=== PATIENT | male | born 1960 | race Hispanic/Latino ===

== ENCOUNTER 2022-11-28 09:08 | Inpatient (IN) | payer OTHER ==
[2022-11-28 09:46] LABS: #Eosinphils 0.3 thou/uL (0.0-0.7); #Monocytes 0.3 thou/uL (0.11-0.59); #Neutrophils 2.3 thou/uL (1.40-6.50); %Basophils 1.1 % (0.0-1.0); %Eosinophils 8.6 % (0.0-10.0); %Lymphocytes 17.7 % (21.0-51.0); %Monocytes 7.5 % (0.0-10.0); %Neutrophils 64.8 % (42.0-75.0); Hematocrit 18.3 % (42.0-52.0); Hemoglobin 6.5 g/dL (14.0-18.0); Mean Corpuscular HGB CONC 35.5 g/dL (32.0-36.0); Mean Corpuscular Hemoglobin 30.1 pg (27.0-31.0); Mean Corpuscular Volume 84.7 fl (78.0-98.0); Mean Platelet Volume 10.8 fL (7.4-10.4); Platelet Count 136 10x3/uL (130-400); RBC Distribution Width 13.1 % (11.5-14.5); Red Blood Cell (RBC) Count 2.16 mill/uL (4.70-6.10); White Blood Cell (WBC) Count 3.6 10x3/uL (4.8-10.8)
[2022-11-28 10:09] LABS: ALT (SGPT) 29 U/L (8-55); AST (SGOT) 30 U/L (5-34); Albumin 2.4 g/dL (3.5-5.0); Alkaline Phosphatase 200 U/L (40-110); Anion Gap 15 mmol/L (10-20); BUN (Urea Nitrogen) 51 mg/dL (8.4-25.7); Bilirubin, Total 0.3 mg/dL (0.2-1.2); Calc. Creatinine Clearance 0 mL/min (70-130); Calcium 7.4 mg/dL (7.8-10.44); Carbon Dioxide 14 mmol/L (22-29); Chloride 99 mmol/L (98-107); Estimated GFR 15; Globulin 3.2 g/dL (2.4-3.5); Potassium 4.3 mmol/L (3.5-5.1); Protein, Total 5.6 g/dL (6.0-8.3); Sodium 124 mmol/L (136-145)
[2022-11-28 10:15] LABS: Glucose 609 mg/dL (70-105)
[2022-11-28 11:34] LABS: Iron 93 ug/dL (65-175); Iron Binding Capacity, Total 179 mcg/dL (261-462)
[2022-11-28 11:36] LABS: INR-International Normal Ratio 0.9; PTT 26.2 sec (22.9-36.1); Prothrombin Time 12.9 sec (12.0-14.7)
[2022-11-28] MEDS ORDERED: Insulin Regular 300 UNITS/3 ML VIAL ONE (11:37)
[2022-11-28 11:52] LABS: Troponin I 0.066 ng/mL (< 0.028)
[2022-11-28] MEDS ORDERED: Dextrose 50% Abboject 50 ML SYRINGE SLOW IVP PRN (12:00)
[2022-11-28] MEDS ORDERED: Glucagon 1 MG/ML KIT IM PRN (12:00)
[2022-11-28] MEDS ORDERED: Dextrose 5% in Water 1,000 ML IV PRN (12:00)
[2022-11-28] MEDS ORDERED: Ondansetron PF 4 MG/2 ML Vial IVP PRN (12:02)
[2022-11-28 12:15] LABS: Actual Bicarbonate (HCO3v) 15.7 mEq/L (22-28); Base Excess -9.9 mEq/L (-2.0 to +3.0); Calcium, Ionized (venous) 0.99 mmol/L (1.16-1.32); Chloride (VBG) 103 mmol/L (98-106); Hematocrit-VBG 18 % (42.0-52.0); Hemoglobin (Hb) 6.1 g/dL (13.1-17.2); Potassium (VBG) 3.72 mmol/L (3.70-5.30); Sodium 124.7 mmol/L (133-146); pH (venous) 7.291 (7.32-7.43)
[2022-11-28] MEDS ORDERED: Sodium Bicarbonate 150 MEQ in Dextrose 5% in Water 1,000 ML IV SCH (12:30)
[2022-11-28 12:34] LABS: Magnesium 1.3 mg/dL (1.6-2.6); Phosphorus 3.9 mg/dL (2.3-4.7)
[2022-11-28] MEDS ORDERED: CALCIUM GLUC 1 GM/NS 50 ML 1 GM in Premix Bag 1 BAG IVPB SCH (12:45)
[2022-11-28 12:59] LABS: Troponin I 0.047 ng/mL (< 0.028)
[2022-11-28 13:20] LABS: Troponin I 0.056 ng/mL (< 0.028)
[2022-11-28] MEDS ORDERED: Magnesium Sulfate In Water 4 GM in Premix Bag 1 BAG IVPB SCH (14:15)
[2022-11-28 15:00] VITALS: BMI 28.8
[2022-11-28 15:37] LABS: Hemoglobin A1c Greater than 14.0 % (4.0-6.0)
[2022-11-28 15:44] LABS: Cardiac Risk 5.5 (Less than 4.5)
[2022-11-28 16:03] LABS: Troponin I 0.073 ng/mL (< 0.028)
[2022-11-28 18:34] LABS: Anion Gap 12 mmol/L (10-20); BUN (Urea Nitrogen) 49 mg/dL (8.4-25.7); Calc. Creatinine Clearance 22 mL/min (70-130); Calcium 7.5 mg/dL (7.8-10.44); Carbon Dioxide 17 mmol/L (22-29); Chloride 103 mmol/L (98-107); Estimated GFR 17; Glucose 296 mg/dL (70-105); Potassium 3.8 mmol/L (3.5-5.1); Sodium 128 mmol/L (136-145)
[2022-11-28] MEDS: Carvedilol 6.25 MG TAB PO SCH (20:30)
[2022-11-28] MEDS: HumaLOG 300 UNITS/3 ML VIAL SC PRN ×2 (20:30→22:17)
[2022-11-28] MEDS: Atorvastatin Calcium 20 MG TAB PO SCH (20:30)
[2022-11-28] MEDS ORDERED: Morphine 2 MG/ML VIAL SLOW IVP SCH (20:45)
[2022-11-28] MEDS ORDERED: Insulin NPH Human Isophane 100 UNITS/ML (10 ML VIAL) SC SCH (21:00)
[2022-11-28] MEDS ORDERED: Sodium Bicarbonate 75 MEQ in Sodium Chloride 0.45% 1,000 ML IV SCH (23:00)
[2022-11-29] MEDS: HumaLOG 300 UNITS/3 ML VIAL SC PRN (00:18)
[2022-11-29 02:52] LABS: #Eosinphils 0.3 thou/uL (0.0-0.7); #Monocytes 0.2 thou/uL (0.11-0.59); #Neutrophils 2.4 thou/uL (1.40-6.50); %Basophils 1.1 % (0.0-1.0); %Eosinophils 8.9 % (0.0-10.0); %Lymphocytes 19.1 % (21.0-51.0); %Monocytes 5.1 % (0.0-10.0); %Neutrophils 65.8 % (42.0-75.0); Hematocrit 22.2 % (42.0-52.0); Hemoglobin 7.6 g/dL (14.0-18.0); Mean Corpuscular HGB CONC 34.2 g/dL (32.0-36.0); Mean Corpuscular Hemoglobin 29.2 pg (27.0-31.0); Mean Corpuscular Volume 85.4 fl (78.0-98.0); Mean Platelet Volume 10.5 fL (7.4-10.4); Platelet Count 129 10x3/uL (130-400); RBC Distribution Width 13.5 % (11.5-14.5); White Blood Cell (WBC) Count 3.7 10x3/uL (4.8-10.8)
[2022-11-29 03:05] LABS: Bacteria/HPF None Seen HPF (None Seen); Bilirubin Negative (Negative); Blood, Urine 2+ (Negative); CAUTI Indications for Culture Alt mental st,lethar; Clarity Clear (Clear); Glucose, Urine (Dipstick) Greater than 1000 mg/dL (Negative); Ketone, Urine Negative (Negative); Leukocyte Negative Leu/uL (Negative); Nitrite Negative (Negative); Protein, Urine (Dipstick) 300 mg/dL (Neg-Trace); Specific Gravity, Urine 1.014 (1.002-1.036); Squamous Epithelial None Seen HPF (0-3); Urobilinogen Normal mg/dL (Less than 2); WBC/HPF 0-3 HPF (0-3)
[2022-11-29 03:07] LABS: Urine Culture Reflex No No
[2022-11-29 03:14] LABS: Creatinine, Urine 38.57 mg/dL (63-166)
[2022-11-29 04:40] LABS: ALT (SGPT) 22 U/L (8-55); AST (SGOT) 25 U/L (5-34); Albumin 1.9 g/dL (3.5-5.0); Alkaline Phosphatase 139 U/L (40-110); Anion Gap 16 mmol/L (10-20); BUN (Urea Nitrogen) 48 mg/dL (8.4-25.7); Bilirubin, Total 0.5 mg/dL (0.2-1.2); CK (CPK) 345 U/L (30-200); Calc. Creatinine Clearance 21 mL/min (70-130); Calcium 7.5 mg/dL (7.8-10.44); Carbon Dioxide 14 mmol/L (22-29); Chloride 105 mmol/L (98-107); Estimated GFR 17; Globulin 2.5 g/dL (2.4-3.5); Glucose 133 mg/dL (70-105); Potassium 3.7 mmol/L (3.5-5.1); Protein, Total 4.4 g/dL (6.0-8.3); Sodium 131 mmol/L (136-145)
[2022-11-29] MEDS: Carvedilol 6.25 MG TAB PO SCH ×2 (08:41→20:42)
[2022-11-29] MEDS ORDERED: Pantoprazole 40 MG VIAL IVP SCH (09:00)
[2022-11-29] MEDS ORDERED: Epoetin (ESRD) 10,000 UNITS/ML VIAL SC SCH (12:00)
[2022-11-29] MEDS: Albumin 25% 25 GM/100 ML BOT IVPB SCH ×3 (13:04→23:20)
[2022-11-29] MEDS: Sodium Bicarbonate Tab 325 MG TAB PO SCH ×3 (13:04→20:52)
[2022-11-29] MEDS: Atorvastatin Calcium 20 MG TAB PO SCH (20:52)
[2022-11-30] MEDS: Levothyroxine Sodium 100 MCG TAB PO SCH (05:50)
[2022-11-30] MEDS: Albumin 25% 25 GM/100 ML BOT IVPB SCH (05:50)
[2022-11-30 05:52] LABS: #Eosinphils 0.2 thou/uL (0.0-0.7); #Monocytes 0.2 thou/uL (0.11-0.59); %Basophils 0.7 % (0.0-1.0); %Eosinophils 7.3 % (0.0-10.0); %Lymphocytes 16.6 % (21.0-51.0); %Monocytes 7.6 % (0.0-10.0); %Neutrophils 67.5 % (42.0-75.0); Hemoglobin 7.3 g/dL (14.0-18.0); Mean Corpuscular HGB CONC 34.8 g/dL (32.0-36.0); Mean Corpuscular Hemoglobin 28.9 pg (27.0-31.0); Mean Platelet Volume 10.7 fL (7.4-10.4); Platelet Count 124 10x3/uL (130-400); RBC Distribution Width 13.8 % (11.5-14.5); Red Blood Cell (RBC) Count 2.53 mill/uL (4.70-6.10)
[2022-11-30 06:10] LABS: Anion Gap 13 mmol/L (10-20); BUN (Urea Nitrogen) 44 mg/dL (8.4-25.7); Calc. Creatinine Clearance 22 mL/min (70-130); Calcium 7.6 mg/dL (7.8-10.44); Carbon Dioxide 17 mmol/L (22-29); Chloride 105 mmol/L (98-107); Estimated GFR 18; Glucose 157 mg/dL (70-105); Sodium 131 mmol/L (136-145)
[2022-11-30] MEDS: Carvedilol 6.25 MG TAB PO SCH ×2 (08:19→20:24)
[2022-11-30] MEDS: Sodium Bicarbonate Tab 325 MG TAB PO SCH ×3 (08:19→20:25)
[2022-11-30] MEDS: HumaLOG 300 UNITS/3 ML VIAL SC PRN ×2 (18:50→20:25)
[2022-11-30] MEDS: Atorvastatin Calcium 20 MG TAB PO SCH (20:24)
[2022-11-30] MEDS: hydrALAZINE 10 MG TAB PO SCH (20:25)
[2022-12-01] MEDS: Levothyroxine Sodium 100 MCG TAB PO SCH (05:57)
[2022-12-01] MEDS: Insulin Glargine 30 UNITS/0.3 ML VIAL SC SCH (09:02)
[2022-12-01] MEDS: Carvedilol 6.25 MG TAB PO SCH ×2 (09:03→21:08)
[2022-12-01] MEDS: Sodium Bicarbonate Tab 325 MG TAB PO SCH ×3 (09:03→21:08)
[2022-12-01] MEDS: hydrALAZINE 10 MG TAB PO SCH ×3 (09:04→21:08)
[2022-12-01] MEDS ORDERED: DOBUTamine 500 mg/250 ml 250 ML IVPB SCH (10:15)
[2022-12-01 10:39] LABS: #Eosinphils 0.2 thou/uL (0.0-0.7); #Monocytes 0.3 thou/uL (0.11-0.59); #Neutrophils 2.5 thou/uL (1.40-6.50); %Basophils 0.9 % (0.0-1.0); %Eosinophils 6.9 % (0.0-10.0); %Lymphocytes 12.4 % (21.0-51.0); %Monocytes 8.3 % (0.0-10.0); %Neutrophils 71.2 % (42.0-75.0); Hematocrit 20.7 % (42.0-52.0); Hemoglobin 6.9 g/dL (14.0-18.0); Mean Corpuscular HGB CONC 33.3 g/dL (32.0-36.0); Mean Platelet Volume 10.5 fL (7.4-10.4); Platelet Count 124 10x3/uL (130-400); RBC Distribution Width 14.1 % (11.5-14.5); Red Blood Cell (RBC) Count 2.38 mill/uL (4.70-6.10); White Blood Cell (WBC) Count 3.5 10x3/uL (4.8-10.8)
[2022-12-01] MEDS: Acetaminophen 325 MG TAB PO PRN ×2 (10:53→18:06)
[2022-12-01] MEDS ORDERED: CALCIUM GLUC 1 GM/NS 50 ML 1 GM in Premix Bag 1 BAG IVPB SCH (11:00)
[2022-12-01 11:06] LABS: Anion Gap 12 mmol/L (10-20); BUN (Urea Nitrogen) 44 mg/dL (8.4-25.7); Calc. Creatinine Clearance 20 mL/min (70-130); Calcium 7.8 mg/dL (7.8-10.44); Carbon Dioxide 19 mmol/L (22-29); Chloride 105 mmol/L (98-107); Estimated GFR 16; Glucose 159 mg/dL (70-105); Magnesium 1.7 mg/dL (1.6-2.6); Potassium 4.4 mmol/L (3.5-5.1); Sodium 132 mmol/L (136-145)
[2022-12-01] MEDS: HumaLOG 300 UNITS/3 ML VIAL SC PRN ×2 (12:18→18:05)
[2022-12-01] MEDS ORDERED: Isosorbide Dinitrate 5 MG TAB PO SCH (14:00)
[2022-12-01] MEDS: traMADol HCl 50 MG TAB PO PRN (21:07)
[2022-12-01] MEDS: Isosorbide Dinitrate 5 MG TAB PO SCH (21:07)
[2022-12-01] MEDS: Atorvastatin Calcium 20 MG TAB PO SCH (21:08)
[2022-12-01] MEDS: Magnesium Oxide 400 MG TAB PO SCH (21:08)
[2022-12-02 05:36] LABS: #Eosinphils 0.2 thou/uL (0.0-0.7); #Monocytes 0.2 thou/uL (0.11-0.59); #Neutrophils 2.2 thou/uL (1.40-6.50); %Basophils 0.7 % (0.0-1.0); %Eosinophils 5.6 % (0.0-10.0); %Lymphocytes 14.2 % (21.0-51.0); %Neutrophils 71.8 % (42.0-75.0); Hematocrit 21.1 % (42.0-52.0); Hemoglobin 7.1 g/dL (14.0-18.0); Mean Corpuscular HGB CONC 33.6 g/dL (32.0-36.0); Mean Corpuscular Hemoglobin 29.6 pg (27.0-31.0); Mean Corpuscular Volume 87.9 fl (78.0-98.0); Mean Platelet Volume 10.2 fL (7.4-10.4); Platelet Count 110 10x3/uL (130-400); RBC Distribution Width 14.4 % (11.5-14.5)
[2022-12-02] MEDS: Isosorbide Dinitrate 5 MG TAB PO SCH (05:36)
[2022-12-02] MEDS: hydrALAZINE 10 MG TAB PO SCH (05:36)
[2022-12-02] MEDS: Levothyroxine Sodium 100 MCG TAB PO SCH (05:37)
[2022-12-02 06:03] LABS: Anion Gap 11 mmol/L (10-20); BUN (Urea Nitrogen) 43 mg/dL (8.4-25.7); Calc. Creatinine Clearance 21 mL/min (70-130); Calcium 7.6 mg/dL (7.8-10.44); Carbon Dioxide 17 mmol/L (22-29); Chloride 109 mmol/L (98-107); Estimated GFR 16; Glucose 56 mg/dL (70-105); Potassium 4.3 mmol/L (3.5-5.1); Sodium 133 mmol/L (136-145)
[2022-12-02 06:59] LABS: Magnesium 1.7 mg/dL (1.6-2.6)
[2022-12-02] MEDS: Insulin Glargine 30 UNITS/0.3 ML VIAL SC SCH (09:51)
[2022-12-02] MEDS: Sodium Bicarbonate Tab 325 MG TAB PO SCH ×3 (09:51→20:38)
[2022-12-02] MEDS: Magnesium Oxide 400 MG TAB PO SCH ×2 (09:52→20:39)
[2022-12-02] MEDS: traMADol HCl 50 MG TAB PO PRN ×2 (09:52→20:38)
[2022-12-02] MEDS: Carvedilol 6.25 MG TAB PO SCH ×2 (09:53→20:38)
[2022-12-02] MEDS: hydrALAZINE 25 MG TAB PO SCH ×2 (14:00→20:37)
[2022-12-02] MEDS: Isosorbide Dinitrate 20 MG TAB PO SCH ×2 (14:00→20:37)
[2022-12-02] MEDS: Acetaminophen 325 MG TAB PO PRN (15:50)
[2022-12-02] MEDS: DOBUTamine 500 mg/250 ml 250 ML IVPB SCH (15:50)
[2022-12-02] MEDS: Atorvastatin Calcium 20 MG TAB PO SCH (20:39)
[2022-12-03 04:22] LABS: #Eosinphils 0.2 thou/uL (0.0-0.7); #Monocytes 0.5 thou/uL (0.11-0.59); #Neutrophils 4.8 thou/uL (1.40-6.50); %Basophils 0.5 % (0.0-1.0); %Eosinophils 3.1 % (0.0-10.0); %Lymphocytes 9.8 % (21.0-51.0); %Neutrophils 78.1 % (42.0-75.0); Hematocrit 21.5 % (42.0-52.0); Hemoglobin 7.1 g/dL (14.0-18.0); Mean Corpuscular Hemoglobin 28.6 pg (27.0-31.0); Mean Corpuscular Volume 86.7 fl (78.0-98.0); Mean Platelet Volume 10.6 fL (7.4-10.4); Platelet Count 101 10x3/uL (130-400); RBC Distribution Width 14.6 % (11.5-14.5); Red Blood Cell (RBC) Count 2.48 mill/uL (4.70-6.10); White Blood Cell (WBC) Count 6.1 10x3/uL (4.8-10.8)
[2022-12-03 04:49] LABS: Anion Gap 11 mmol/L (10-20); BUN (Urea Nitrogen) 41 mg/dL (8.4-25.7); Calc. Creatinine Clearance 20 mL/min (70-130); Calcium 7.3 mg/dL (7.8-10.44); Carbon Dioxide 18 mmol/L (22-29); Chloride 106 mmol/L (98-107); Estimated GFR 15; Magnesium 1.7 mg/dL (1.6-2.6); Sodium 131 mmol/L (136-145)
[2022-12-03 04:55] LABS: Glucose 54 mg/dL (70-105)
[2022-12-03] MEDS: hydrALAZINE 25 MG TAB PO SCH ×3 (05:28→20:53)
[2022-12-03] MEDS: Levothyroxine Sodium 100 MCG TAB PO SCH (05:28)
[2022-12-03] MEDS: Isosorbide Dinitrate 20 MG TAB PO SCH ×3 (05:28→20:54)
[2022-12-03] MEDS ORDERED: hydrALAZINE 25 MG TAB PO SCH (08:45)
[2022-12-03] MEDS: Magnesium Oxide 400 MG TAB PO SCH ×2 (08:57→20:55)
[2022-12-03] MEDS: Carvedilol 6.25 MG TAB PO SCH ×2 (08:58→20:55)
[2022-12-03] MEDS: Sodium Bicarbonate Tab 325 MG TAB PO SCH (08:59)
[2022-12-03] MEDS: traMADol HCl 50 MG TAB PO PRN ×2 (10:14→20:54)
[2022-12-03] MEDS ORDERED: Tuberculin PPD 0.1 ML VIAL I-DERMAL SCH (13:15)
[2022-12-03] MEDS: Atorvastatin Calcium 20 MG TAB PO SCH (20:55)
[2022-12-04 04:21] LABS: #Eosinphils 0.2 thou/uL (0.0-0.7); #Monocytes 0.3 thou/uL (0.11-0.59); #Neutrophils 3.5 thou/uL (1.40-6.50); %Basophils 0.5 % (0.0-1.0); %Eosinophils 5.2 % (0.0-10.0); %Lymphocytes 6.6 % (21.0-51.0); %Monocytes 7.7 % (0.0-10.0); %Neutrophils 79.8 % (42.0-75.0); Hematocrit 22.1 % (42.0-52.0); Hemoglobin 7.2 g/dL (14.0-18.0); Mean Corpuscular HGB CONC 32.6 g/dL (32.0-36.0); Mean Corpuscular Hemoglobin 29.1 pg (27.0-31.0); Mean Platelet Volume 10.7 fL (7.4-10.4); Platelet Count 102 10x3/uL (130-400); RBC Distribution Width 14.6 % (11.5-14.5); Red Blood Cell (RBC) Count 2.47 mill/uL (4.70-6.10); White Blood Cell (WBC) Count 4.4 10x3/uL (4.8-10.8)
[2022-12-04 04:24] LABS: Mean Corpuscular Volume 89.5 fl (78.0-98.0)
[2022-12-04 04:45] LABS: Anion Gap 13 mmol/L (10-20); BUN (Urea Nitrogen) 41 mg/dL (8.4-25.7); Calc. Creatinine Clearance 19 mL/min (70-130); Calcium 7.2 mg/dL (7.8-10.44); Carbon Dioxide 18 mmol/L (22-29); Chloride 107 mmol/L (98-107); Estimated GFR 14; Glucose 144 mg/dL (70-105); Magnesium 1.8 mg/dL (1.6-2.6); Potassium 4.5 mmol/L (3.5-5.1); Sodium 133 mmol/L (136-145)
[2022-12-04 05:05] LABS: HBSAB Concentration Less than 8.00 mIU/mL; HBSAg Index 0.27 S/CO (0-0.99); Hep B Core Total Ab Non-Reactive (NonReactive); Hep B Core Total Index 0.06 S/CO (0-0.79); Hep B Surf AB Non-Reactive (NonReactive); Hep B Surf Ag Non-Reactive S/CO (NonReactive); Hep C IgG Ab Non-Reactive S/CO (NonReactive)
[2022-12-04] MEDS: Isosorbide Dinitrate 20 MG TAB PO SCH ×3 (05:37→22:05)
[2022-12-04] MEDS: Levothyroxine Sodium 100 MCG TAB PO SCH (05:37)
[2022-12-04] MEDS: hydrALAZINE 25 MG TAB PO SCH ×3 (05:37→22:04)
[2022-12-04] MEDS ORDERED: fentaNYL PF 100 MCG/2 ML SYRINGE ONE (06:18)
[2022-12-04] MEDS ORDERED: Bupivacaine PF 0.5% 30 ML VIAL ONE (06:49)
[2022-12-04] MEDS ORDERED: Lidocaine 2% PF 5 ML VIAL ONE (06:49)
[2022-12-04] MEDS ORDERED: EPINEPHrine 1 MG/ML AMP ONE (06:49)
[2022-12-04] MEDS ORDERED: Midazolam HCl 2 mg/2 ml Vial ONE (06:58)
[2022-12-04] MEDS ORDERED: Lidocaine 1% PF 5 ML VIAL ONE (08:32)
[2022-12-04] MEDS ORDERED: PROPOFOL 200 MG/20 ML VIAL ONE (08:32)
[2022-12-04] MEDS: Carvedilol 6.25 MG TAB PO SCH ×2 (10:19→22:05)
[2022-12-04] MEDS: Magnesium Oxide 400 MG TAB PO SCH ×2 (10:19→22:04)
[2022-12-04] MEDS: traMADol HCl 50 MG TAB PO PRN (13:58)
[2022-12-04] MEDS ORDERED: Tuberculin PPD 0.1 ML VIAL I-DERMAL SCH (15:15)
[2022-12-04] MEDS ORDERED: CEFAZOLIN 2 GM in Sodium Chloride 0.9% 100 ML IVPB SCH (15:45)
[2022-12-04] MEDS: EPOETIN ALFA-EPBX (ESRD) 10,000 UNITS/ML VIAL IVP SCH (16:30)
[2022-12-04] MEDS: DOBUTamine 500 mg/250 ml 250 ML IVPB SCH (18:17)
[2022-12-04] MEDS: Atorvastatin Calcium 20 MG TAB PO SCH (22:04)
[2022-12-04] MEDS: HumaLOG 300 UNITS/3 ML VIAL SC PRN (22:06)
[2022-12-04] MEDS: Acetaminophen 325 MG TAB PO PRN (22:11)
[2022-12-05] MEDS ORDERED: Morphine 2 MG/ML VIAL SLOW IVP SCH (00:15)
[2022-12-05 04:09] LABS: #Eosinphils 0.3 thou/uL (0.0-0.7); #Monocytes 0.4 thou/uL (0.11-0.59); #Neutrophils 2.1 thou/uL (1.40-6.50); %Basophils 0.9 % (0.0-1.0); %Eosinophils 9.6 % (0.0-10.0); %Monocytes 11.7 % (0.0-10.0); %Neutrophils 64.8 % (42.0-75.0); Hematocrit 22.1 % (42.0-52.0); Hemoglobin 7.3 g/dL (14.0-18.0); Mean Corpuscular Hemoglobin 29.2 pg (27.0-31.0); Mean Corpuscular Volume 88.4 fl (78.0-98.0); Mean Platelet Volume 10.2 fL (7.4-10.4); Platelet Count 116 10x3/uL (130-400); RBC Distribution Width 14.8 % (11.5-14.5); White Blood Cell (WBC) Count 3.2 10x3/uL (4.8-10.8)
[2022-12-05] MEDS: hydrALAZINE 25 MG TAB PO SCH ×3 (05:11→21:05)
[2022-12-05] MEDS: Isosorbide Dinitrate 20 MG TAB PO SCH ×3 (05:11→21:04)
[2022-12-05] MEDS: Levothyroxine Sodium 100 MCG TAB PO SCH (05:11)
[2022-12-05] MEDS: HumaLOG 300 UNITS/3 ML VIAL SC PRN ×2 (06:26→18:16)
[2022-12-05 07:02] LABS: Anion Gap 12 mmol/L (10-20); BUN (Urea Nitrogen) 31 mg/dL (8.4-25.7); Calc. Creatinine Clearance 22 mL/min (70-130); Calcium 7.2 mg/dL (7.6-10.4); Carbon Dioxide 19 mmol/L (22-29); Chloride 107 mmol/L (98-107); Estimated GFR 16; Glucose 243 mg/dL (70-105); Magnesium 1.8 mg/dL (1.6-2.6); Potassium 4.3 mmol/L (3.5-5.1); Sodium 134 mmol/L (136-145)
[2022-12-05] MEDS ORDERED: DOBUTamine 500 mg/250 ml 250 ML IVPB SCH (08:00)
[2022-12-05] MEDS: Carvedilol 6.25 MG TAB PO SCH ×2 (09:57→21:04)
[2022-12-05] MEDS: Magnesium Oxide 400 MG TAB PO SCH ×2 (09:57→21:04)
[2022-12-05] MEDS ORDERED: Heparin 10,000 UNITS/ 10 ML VIAL ONE (10:47)
[2022-12-05] MEDS: traMADol HCl 50 MG TAB PO PRN (14:06)
[2022-12-05] MEDS: Atorvastatin Calcium 20 MG TAB PO SCH (21:12)
[2022-12-06] MEDS: traMADol HCl 50 MG TAB PO PRN ×2 (02:31→14:13)
[2022-12-06 04:55] LABS: #Eosinphils 0.3 thou/uL (0.0-0.7); #Monocytes 0.4 thou/uL (0.11-0.59); #Neutrophils 2.4 thou/uL (1.40-6.50); %Basophils 0.8 % (0.0-1.0); %Eosinophils 9.2 % (0.0-10.0); %Lymphocytes 14.2 % (21.0-51.0); %Monocytes 9.7 % (0.0-10.0); %Neutrophils 65.8 % (42.0-75.0); Hematocrit 25.1 % (42.0-52.0); Hemoglobin 8.3 g/dL (14.0-18.0); Mean Corpuscular HGB CONC 33.1 g/dL (32.0-36.0); Mean Corpuscular Volume 87.8 fl (78.0-98.0); Mean Platelet Volume 10.2 fL (7.4-10.4); Platelet Count 131 10x3/uL (130-400); RBC Distribution Width 14.8 % (11.5-14.5); Red Blood Cell (RBC) Count 2.86 mill/uL (4.70-6.10); White Blood Cell (WBC) Count 3.6 10x3/uL (4.8-10.8)
[2022-12-06 05:26] LABS: Anion Gap 11 mmol/L (10-20); BUN (Urea Nitrogen) 25 mg/dL (8.4-25.7); Calc. Creatinine Clearance 25 mL/min (70-130); Calcium 7.1 mg/dL (7.8-10.44); Carbon Dioxide 23 mmol/L (22-29); Chloride 103 mmol/L (98-107); Estimated GFR 19; Glucose 164 mg/dL (70-105); Magnesium 1.8 mg/dL (1.6-2.6); Potassium 4.2 mmol/L (3.5-5.1); Sodium 133 mmol/L (136-145)
[2022-12-06] MEDS: hydrALAZINE 25 MG TAB PO SCH ×3 (05:41→20:57)
[2022-12-06] MEDS: Isosorbide Dinitrate 20 MG TAB PO SCH ×3 (05:42→20:58)
[2022-12-06] MEDS: Levothyroxine Sodium 100 MCG TAB PO SCH (05:43)
[2022-12-06] MEDS: HumaLOG 300 UNITS/3 ML VIAL SC PRN ×2 (06:52→20:58)
[2022-12-06] MEDS: Magnesium Oxide 400 MG TAB PO SCH ×2 (08:42→20:57)
[2022-12-06] MEDS: Carvedilol 6.25 MG TAB PO SCH ×2 (08:42→20:57)
[2022-12-06] MEDS: EPOETIN ALFA-EPBX (ESRD) 10,000 UNITS/ML VIAL IVP SCH (08:42)
[2022-12-06] MEDS: Atorvastatin Calcium 20 MG TAB PO SCH (20:57)
[2022-12-07] MEDS: traMADol HCl 50 MG TAB PO PRN ×2 (02:16→15:23)
[2022-12-07 05:29] LABS: #Eosinphils 0.4 thou/uL (0.0-0.7); #Monocytes 0.4 thou/uL (0.11-0.59); %Basophils 1.1 % (0.0-1.0); %Eosinophils 11.3 % (0.0-10.0); %Lymphocytes 19.7 % (21.0-51.0); %Monocytes 11.3 % (0.0-10.0); Hematocrit 24.5 % (42.0-52.0); Hemoglobin 7.9 g/dL (14.0-18.0); Mean Corpuscular HGB CONC 32.2 g/dL (32.0-36.0); Mean Corpuscular Hemoglobin 28.8 pg (27.0-31.0); Mean Corpuscular Volume 89.4 fl (78.0-98.0); Mean Platelet Volume 10.4 fL (7.4-10.4); Platelet Count 127 10x3/uL (130-400); RBC Distribution Width 14.8 % (11.5-14.5); Red Blood Cell (RBC) Count 2.74 mill/uL (4.70-6.10); White Blood Cell (WBC) Count 3.6 10x3/uL (4.8-10.8)
[2022-12-07] MEDS: Isosorbide Dinitrate 20 MG TAB PO SCH ×3 (05:47→21:54)
[2022-12-07] MEDS: hydrALAZINE 25 MG TAB PO SCH ×3 (05:48→21:53)
[2022-12-07] MEDS: Levothyroxine Sodium 100 MCG TAB PO SCH (05:48)
[2022-12-07 05:56] LABS: Anion Gap 10 mmol/L (10-20); BUN (Urea Nitrogen) 32 mg/dL (8.4-25.7); Calc. Creatinine Clearance 19 mL/min (70-130); Calcium 7.3 mg/dL (7.8-10.44); Carbon Dioxide 21 mmol/L (22-29); Chloride 106 mmol/L (98-107); Estimated GFR 16; Glucose 120 mg/dL (70-105); Magnesium 1.9 mg/dL (1.6-2.6); Potassium 4.5 mmol/L (3.5-5.1); Sodium 132 mmol/L (136-145)
[2022-12-07] MEDS ORDERED: READ PPD TEST SITE PO SCH (09:00)
[2022-12-07] MEDS: Carvedilol 6.25 MG TAB PO SCH ×2 (09:28→21:53)
[2022-12-07] MEDS: Magnesium Oxide 400 MG TAB PO SCH ×2 (09:28→21:54)
[2022-12-07] MEDS: HumaLOG 300 UNITS/3 ML VIAL SC PRN (11:45)
[2022-12-07] MEDS: Atorvastatin Calcium 20 MG TAB PO SCH (21:54)
[2022-12-07] MEDS ORDERED: Fioricet 325/50/40 mg Tablet PO PRN (22:00)
[2022-12-08] MEDS: traMADol HCl 50 MG TAB PO PRN (03:53)
[2022-12-08 04:38] LABS: #Eosinphils 0.3 thou/uL (0.0-0.7); #Monocytes 0.3 thou/uL (0.11-0.59); #Neutrophils 1.8 thou/uL (1.40-6.50); %Eosinophils 9.3 % (0.0-10.0); %Lymphocytes 21.9 % (21.0-51.0); %Monocytes 9.6 % (0.0-10.0); %Neutrophils 58.2 % (42.0-75.0); Hemoglobin 7.5 g/dL (14.0-18.0); Mean Corpuscular HGB CONC 31.3 g/dL (32.0-36.0); Mean Corpuscular Hemoglobin 28.4 pg (27.0-31.0); Mean Corpuscular Volume 90.9 fl (78.0-98.0); Mean Platelet Volume 10.2 fL (7.4-10.4); Platelet Count 120 10x3/uL (130-400); RBC Distribution Width 14.8 % (11.5-14.5); Red Blood Cell (RBC) Count 2.64 mill/uL (4.70-6.10)
[2022-12-08 05:06] LABS: Anion Gap 11 mmol/L (10-20); BUN (Urea Nitrogen) 32 mg/dL (8.4-25.7); Calc. Creatinine Clearance 21 mL/min (70-130); Calcium 7.1 mg/dL (7.8-10.44); Carbon Dioxide 19 mmol/L (22-29); Chloride 105 mmol/L (98-107); Estimated GFR 16; Glucose 197 mg/dL (70-105); Magnesium 1.9 mg/dL (1.6-2.6); Potassium 4.8 mmol/L (3.5-5.1); Sodium 130 mmol/L (136-145)
[2022-12-08] MEDS: HumaLOG 300 UNITS/3 ML VIAL SC PRN (06:42)
[2022-12-08] MEDS: Levothyroxine Sodium 100 MCG TAB PO SCH (06:42)
[2022-12-08] MEDS: hydrALAZINE 25 MG TAB PO SCH (06:42)
[2022-12-08] MEDS: Isosorbide Dinitrate 20 MG TAB PO SCH (06:42)
[2022-12-08 08:12] VITALS: TEMP 98.3
[2022-12-08] MEDS: Magnesium Oxide 400 MG TAB PO SCH (11:34)
[2022-12-08] MEDS: Carvedilol 6.25 MG TAB PO SCH (11:34)
[2022-12-08 11:37] VITALS: BP 173/98
[2022-12-08] MEDS ORDERED: Insulin Glargine 30 UNITS/0.3 ML VIAL SC SCH (21:00)
== END 2022-12-08 13:06 | disposition home or self-care (01) | DRG 291 ==
LOC: ERS 09:08 → ERHOLD 12:18 → OBSVTOIN 14:16 → IMCU/EMU 14:44 → 2SW 14:46 → IMCU/EMU 15:49 → 2NO 11-30 22:55
PROVIDERS: ADMIT Internal Medicine; ATTEND Internal Medicine
PROC: 30233N1 Transfusion of Nonautologous Red Blood Cells into Peripheral Vein, Percutaneous Approach (ICD-10-PCS; 2022-11-28)
PROC: 30233J1 Transfusion of Nonautologous Serum Albumin into Peripheral Vein, Percutaneous Approach (ICD-10-PCS; 2022-11-29)
PROC: 0JH63XZ Insertion of Tunneled Vascular Access Device into Chest Subcutaneous Tissue and Fascia, Percutaneous Approach (ICD-10-PCS; principal; 2022-12-04)
PROC: 02HV33Z Insertion of Infusion Device into Superior Vena Cava, Percutaneous Approach (ICD-10-PCS; 2022-12-04)
PROC: B548ZZA Ultrasonography of Superior Vena Cava, Guidance (ICD-10-PCS; 2022-12-04)
PROC: 3E033XZ Introduction of Vasopressor into Peripheral Vein, Percutaneous Approach (ICD-10-PCS; 2022-12-04)
PROC: 5A1D70Z Performance of Urinary Filtration, Intermittent, Less than 6 Hours Per Day (ICD-10-PCS; 2022-12-04)
PROC: 5A1D70Z Performance of Urinary Filtration, Intermittent, Less than 6 Hours Per Day (ICD-10-PCS; 2022-12-05)
DX: I13.2 Hypertensive heart and chronic kidney disease with heart failure and with stage 5 chronic kidney disease, or end stage renal disease (principal); E11.00 Type 2 diabetes mellitus with hyperosmolarity without nonketotic hyperglycemic-hyperosmolar coma (NKHHC); I50.23 Acute on chronic systolic (congestive) heart failure; N18.6 End stage renal disease; E87.1 Hypo-osmolality and hyponatremia; E87.20 Acidosis, unspecified; D61.818 Other pancytopenia; I24.89 Other forms of acute ischemic heart disease; N17.9 Acute kidney failure, unspecified; I42.8 Other cardiomyopathies; E11.22 Type 2 diabetes mellitus with diabetic chronic kidney disease; E78.5 Hyperlipidemia, unspecified; E11.40 Type 2 diabetes mellitus with diabetic neuropathy, unspecified; E11.65 Type 2 diabetes mellitus with hyperglycemia; K74.60 Unspecified cirrhosis of liver; E88.09 Other disorders of plasma-protein metabolism, not elsewhere classified; E83.51 Hypocalcemia; D63.1 Anemia in chronic kidney disease; I16.0 Hypertensive urgency; D72.819 Decreased white blood cell count, unspecified; E03.9 Hypothyroidism, unspecified; E83.42 Hypomagnesemia; Z91.141 Patient's other noncompliance with medication regimen due to financial hardship; Z91.148 Patient's other noncompliance with medication regimen for other reason; Z79.899 Other long term (current) drug therapy
CPT/HCPCS: 36415; 36416; 36430; 70450; 70551; 71045; 74176; 76705; 76770; 80048; 80053; 80061; 81001; 82010; 82274; 82550; 82570; 82728; 82805; 83036; 83540; 83550; 83605; 83615; 83690; 83735; 83880; 84100; 84145; 84156; 84439; 84443; 84481; 84484; 85025; 85046; 85610; 85730; 86580; 86704; 86850; 86870; 86900; 86901; 86905; 86922; 87040; 90935; 93005; 93010; 93306; 93798; 93880; 93923; 93970; 96361; 96374; C1752; C9113; G0257; J0171; J0613; J1250; J1642; J1644; J1815; J2001; J2250; J2272; J2704; J3475; J7070; P9016; P9047; Q4081; Q5105; S0020

== ENCOUNTER 2022-12-13 19:58 | Emergency (ER) | payer OTHER ==
[2022-12-13 21:52] LABS: #Eosinphils 0.3 thou/uL (0.0-0.7); #Monocytes 0.2 thou/uL (0.11-0.59); #Neutrophils 2.2 thou/uL (1.40-6.50); %Basophils 1.3 % (0.0-1.0); %Eosinophils 9.4 % (0.0-10.0); %Lymphocytes 14.4 % (21.0-51.0); %Monocytes 6.6 % (0.0-10.0); Hematocrit 26.8 % (42.0-52.0); Hemoglobin 8.6 g/dL (14.0-18.0); Mean Corpuscular HGB CONC 32.1 g/dL (32.0-36.0); Mean Corpuscular Hemoglobin 29.8 pg (27.0-31.0); Mean Corpuscular Volume 92.7 fl (78.0-98.0); Mean Platelet Volume 10.3 fL (7.4-10.4); Platelet Count 125 10x3/uL (130-400); RBC Distribution Width 15.9 % (11.5-14.5); Red Blood Cell (RBC) Count 2.89 mill/uL (4.70-6.10); White Blood Cell (WBC) Count 3.2 10x3/uL (4.8-10.8)
[2022-12-13 22:10] LABS: ALT (SGPT) 15 U/L (8-55); AST (SGOT) 32 U/L (5-34); Alkaline Phosphatase 106 U/L (40-110); Anion Gap 10 mmol/L (10-20); BUN (Urea Nitrogen) 11 mg/dL (8.4-25.7); Bilirubin, Total 0.3 mg/dL (0.2-1.2); Calc. Creatinine Clearance 0 mL/min (70-130); Calcium 8.1 mg/dL (7.8-10.44); Carbon Dioxide 29 mmol/L (22-29); Chloride 105 mmol/L (98-107); Estimated GFR 37; Globulin 2.6 g/dL (2.4-3.5); Glucose 124 mg/dL (70-105); Lipase 13 U/L (8-78); Potassium 3.9 mmol/L (3.5-5.1); Protein, Total 5.6 g/dL (6.0-8.3); Sodium 140 mmol/L (136-145)
[2022-12-13 22:12] LABS: Troponin I 0.039 ng/mL (< 0.028)
== END 2022-12-13 23:43 | disposition home or self-care (01) ==
LOC: ERS 19:58
DX: D64.9 Anemia, unspecified (principal); E11.22 Type 2 diabetes mellitus with diabetic chronic kidney disease; N18.6 End stage renal disease; I12.9 Hypertensive chronic kidney disease with stage 1 through stage 4 chronic kidney disease, or unspecified chronic kidney disease; Z99.2 Dependence on renal dialysis; Z87.891 Personal history of nicotine dependence
CPT/HCPCS: 36416; 70450; 80053; 83690; 84484; 85025; 93005; 96374

== ENCOUNTER 2022-12-22 12:06 | Inpatient (IN) | payer OTHER ==
[2022-12-22 12:40] LABS: #Eosinphils 0.1 thou/uL (0.0-0.7); #Monocytes 0.2 thou/uL (0.11-0.59); #Neutrophils 2.4 thou/uL (1.40-6.50); %Basophils 1.2 % (0.0-1.0); %Eosinophils 3.9 % (0.0-10.0); %Lymphocytes 16.9 % (21.0-51.0); %Neutrophils 71.7 % (42.0-75.0); Hematocrit 34.4 % (42.0-52.0); Hemoglobin 10.8 g/dL (14.0-18.0); Mean Corpuscular HGB CONC 31.4 g/dL (32.0-36.0); Mean Corpuscular Hemoglobin 29.6 pg (27.0-31.0); Mean Corpuscular Volume 94.2 fl (78.0-98.0); Platelet Count 197 10x3/uL (130-400); RBC Distribution Width 15.7 % (11.5-14.5); Red Blood Cell (RBC) Count 3.65 mill/uL (4.70-6.10); White Blood Cell (WBC) Count 3.3 10x3/uL (4.8-10.8)
[2022-12-22 13:12] LABS: Troponin I 0.039 ng/mL (< 0.028)
[2022-12-22 13:18] LABS: ALT (SGPT) 27 U/L (8-55); AST (SGOT) 33 U/L (5-34); Albumin 3.2 g/dL (3.5-5.0); Alkaline Phosphatase 133 U/L (40-110); Anion Gap 11 mmol/L (10-20); BUN (Urea Nitrogen) 18 mg/dL (8.4-25.7); Bilirubin, Total 0.3 mg/dL (0.2-1.2); Calc. Creatinine Clearance 0 mL/min (70-130); Calcium 7.9 mg/dL (7.8-10.44); Carbon Dioxide 28 mmol/L (22-29); Chloride 107 mmol/L (98-107); Estimated GFR 27; Globulin 2.9 g/dL (2.4-3.5); Glucose 68 mg/dL (70-105); Magnesium 1.9 mg/dL (1.6-2.6); Potassium 5.1 mmol/L (3.5-5.1); Protein, Total 6.1 g/dL (6.0-8.3); Sodium 141 mmol/L (136-145)
[2022-12-22 14:36] LABS: Analyzer IN Cardio ER; Base Excess 0.5 mEq/L (-2.0 to +3.0); Calcium, Ionized (venous) 1.06 mmol/L (1.16-1.32); Chloride (VBG) 105 mmol/L (98-106); Hematocrit-VBG 30 % (42.0-52.0); Hemoglobin (Hb) 10.1 g/dL (13.1-17.2); Potassium (VBG) 4.05 mmol/L (3.70-5.30); Sodium 138 mmol/L (133-146); pH (venous) 7.374 (7.32-7.43)
[2022-12-22] MEDS ORDERED: LORazepam 2 MG/ML SYR.(CARPUJECT) ONE (17:31)
[2022-12-22] MEDS ORDERED: HYDROcodone/Acetaminophen 5/325 mg Tablet PO PRN (19:16)
[2022-12-22] MEDS ORDERED: Ondansetron ODT 4 MG TAB PO PRN (19:16)
[2022-12-22 19:41] VITALS: BMI 24.7
[2022-12-22] MEDS: Acetaminophen 325 MG TAB PO PRN (19:46)
[2022-12-22] MEDS ORDERED: [UNRECOGNIZED DRUG - OTHER] IVPB PRN (20:06)
[2022-12-22] MEDS ORDERED: Vancomycin (BATCH) 1.5 GM in Premix 1 BAG IVPB SCH (20:15)
[2022-12-22] MEDS ORDERED: Vancomycin Diaylsis Sliding Scale (Wt 71-99) FS SCH (20:15)
[2022-12-22] MEDS ORDERED: Cefepime 1 GM in Sodium Chloride 0.9% 100 ML IVPB SCH (21:00)
[2022-12-22] MEDS: Heparin 5,000 UNITS/ML VIAL SC SCH (22:52)
[2022-12-22] MEDS ORDERED: Glucagon 1 MG/ML KIT IM PRN (23:25)
[2022-12-22] MEDS ORDERED: Dextrose 50% Abboject 50 ML SYRINGE SLOW IVP PRN (23:25)
[2022-12-22] MEDS ORDERED: Dextrose 5% in Water 1,000 ML IV PRN (23:25)
[2022-12-22] MEDS ORDERED: HumaLOG 300 UNITS/3 ML VIAL SC PRN (23:25)
[2022-12-23] MEDS: HumaLOG 300 UNITS/3 ML VIAL SC PRN (05:57)
[2022-12-23 07:44] LABS: Vancomycin, Random 13.4 ug/mL (See Comment)
[2022-12-23 07:46] LABS: ALT (SGPT) 19 U/L (8-55); AST (SGOT) 27 U/L (5-34); Albumin 2.5 g/dL (3.5-5.0); Alkaline Phosphatase 95 U/L (40-110); Anion Gap 9 mmol/L (10-20); BUN (Urea Nitrogen) 25 mg/dL (8.4-25.7); Bilirubin, Total 0.2 mg/dL (0.2-1.2); Calc. Creatinine Clearance 26 mL/min (70-130); Calcium 7.4 mg/dL (7.8-10.44); Carbon Dioxide 26 mmol/L (22-29); Chloride 106 mmol/L (98-107); Estimated GFR 22; Globulin 2.3 g/dL (2.4-3.5); Glucose 176 mg/dL (70-105); Protein, Total 4.8 g/dL (6.0-8.3); Sodium 137 mmol/L (136-145)
[2022-12-23] MEDS: Acetaminophen 325 MG TAB PO PRN (09:59)
[2022-12-23] MEDS: Heparin 5,000 UNITS/ML VIAL SC SCH ×2 (10:02→20:36)
[2022-12-23] MEDS: Calcium Carbonate 500 MG ChewTAB PO PRN (11:11)
[2022-12-23] MEDS: Benzocaine/Menthol 1 LOZ LOZ PO PRN (12:18)
[2022-12-23 13:17] LABS: Campy jejuni + coli by PCR Negative (Negative); STEC Shiga Toxin 1+2 Negative (Negative); Salmonella spp. by PCR Negative (Negative); Shigella spp + EIEC by PCR Negative (Negative)
[2022-12-23] MEDS ORDERED: Lorazepam 2 MG/ML VIAL SLOW IVP SCH (14:15)
[2022-12-23] MEDS: Ondansetron PF 4 MG/2 ML Vial IVP PRN (14:46)
[2022-12-23] MEDS ORDERED: Vancomycin HCl 750 MG in Sodium Chloride 0.9% 250 ML 250 ML IVPB SCH (17:00)
[2022-12-23] MEDS: Insulin Glargine 30 UNITS/0.3 ML VIAL SC SCH (20:36)
[2022-12-23] MEDS: Cefepime 1 GM in Sodium Chloride 0.9% 100 ML IVPB SCH (21:46)
[2022-12-24] MEDS: Levothyroxine Sodium 100 MCG TAB PO SCH (05:42)
[2022-12-24 08:14] LABS: #Basophils 0.1 thou/uL (0.0-0.2); #Eosinphils 0.4 thou/uL (0.0-0.7); #Monocytes 0.4 thou/uL (0.11-0.59); #Neutrophils 3.3 thou/uL (1.40-6.50); %Basophils 1.1 % (0.0-1.0); %Eosinophils 7.7 % (0.0-10.0); %Lymphocytes 13.5 % (21.0-51.0); %Monocytes 7.5 % (0.0-10.0); Mean Corpuscular HGB CONC 29.2 g/dL (32.0-36.0); Mean Corpuscular Hemoglobin 29.3 pg (27.0-31.0); Mean Corpuscular Volume 100.4 fl (78.0-98.0); Mean Platelet Volume 10.7 fL (7.4-10.4); Platelet Count 141 10x3/uL (130-400); Red Blood Cell (RBC) Count 2.39 mill/uL (4.70-6.10); White Blood Cell (WBC) Count 4.7 10x3/uL (4.8-10.8)
[2022-12-24 08:39] LABS: Anion Gap 12 mmol/L (10-20); BUN (Urea Nitrogen) 12 mg/dL (8.4-25.7); Calc. Creatinine Clearance 39 mL/min (70-130); Calcium 7.3 mg/dL (7.8-10.44); Carbon Dioxide 24 mmol/L (22-29); Chloride 105 mmol/L (98-107); Estimated GFR 35; Glucose 91 mg/dL (70-105); Potassium 3.7 mmol/L (3.5-5.1); Sodium 137 mmol/L (136-145)
[2022-12-24] MEDS: Heparin 5,000 UNITS/ML VIAL SC SCH ×2 (09:26→20:00)
[2022-12-24] MEDS: Benzocaine/Menthol 1 LOZ LOZ PO PRN (09:30)
[2022-12-24 12:06] LABS: Bilirubin Negative (Negative); Blood, Urine 1+ (Negative); Clarity Clear (Clear); Glucose, Urine (Dipstick) >=1000 mg/dL (Negative); Ketone, Urine Negative (Negative); Leukocyte Negative Leu/uL (Negative); Nitrite Negative (Negative); Protein, Urine (Dipstick) Greater than 600 mg/dL (Neg-Trace); Specific Gravity, Urine 1.024 (1.002-1.036); Squamous Epithelial 0-3 HPF (0-3); Urobilinogen Normal mg/dL (Less than 2)
[2022-12-24 12:14] LABS: Bacteria/HPF 1+ HPF (None Seen)
[2022-12-24] MEDS ORDERED: guaiFENesin/Codeine 200 mg/20 mg 10 ml Cup PO SCH (12:15)
[2022-12-24] MEDS: Cefepime 1 GM in Sodium Chloride 0.9% 100 ML IVPB SCH (16:30)
[2022-12-24] MEDS: HumaLOG 300 UNITS/3 ML VIAL SC PRN (16:30)
[2022-12-24] MEDS: Insulin Glargine 30 UNITS/0.3 ML VIAL SC SCH (20:01)
[2022-12-24] MEDS: guaiFENesin/Codeine 200 mg/20 mg 10 ml Cup PO PRN (20:01)
[2022-12-25] MEDS: guaiFENesin/Codeine 200 mg/20 mg 10 ml Cup PO PRN ×3 (03:29→21:09)
[2022-12-25] MEDS: Benzocaine/Menthol 1 LOZ LOZ PO PRN ×2 (03:37→10:03)
[2022-12-25] MEDS: Acetaminophen 325 MG TAB PO PRN ×2 (03:38→10:03)
[2022-12-25] MEDS: Levothyroxine Sodium 100 MCG TAB PO SCH (06:16)
[2022-12-25] MEDS: HumaLOG 300 UNITS/3 ML VIAL SC PRN (06:16)
[2022-12-25 07:23] LABS: #Eosinphils 0.4 thou/uL (0.0-0.7); #Monocytes 0.4 thou/uL (0.11-0.59); #Neutrophils 2.6 thou/uL (1.40-6.50); %Basophils 0.8 % (0.0-1.0); %Eosinophils 10.7 % (0.0-10.0); %Lymphocytes 14.1 % (21.0-51.0); %Neutrophils 65.1 % (42.0-75.0); Hematocrit 20.9 % (42.0-52.0); Hemoglobin 6.7 g/dL (14.0-18.0); Mean Corpuscular HGB CONC 32.1 g/dL (32.0-36.0); Mean Corpuscular Hemoglobin 30.5 pg (27.0-31.0); Mean Platelet Volume 10.3 fL (7.4-10.4); Platelet Count 128 10x3/uL (130-400); RBC Distribution Width 15.9 % (11.5-14.5); White Blood Cell (WBC) Count 3.9 10x3/uL (4.8-10.8)
[2022-12-25 07:56] LABS: Anion Gap 11 mmol/L (10-20); BUN (Urea Nitrogen) 19 mg/dL (8.4-25.7); Calc. Creatinine Clearance 28 mL/min (70-130); Carbon Dioxide 26 mmol/L (22-29); Chloride 104 mmol/L (98-107); Estimated GFR 24; Glucose 95 mg/dL (70-105); Potassium 3.8 mmol/L (3.5-5.1); Sodium 137 mmol/L (136-145)
[2022-12-25 08:05] LABS: Calcium 6.9 mg/dL (7.8-10.44)
[2022-12-25] MEDS: Heparin 5,000 UNITS/ML VIAL SC SCH (08:40)
[2022-12-25] MEDS: Calcium Carbonate 500 MG ChewTAB PO PRN ×2 (10:03→16:46)
[2022-12-25 10:18] LABS: Hematocrit 22.8 % (42.0-52.0); Hemoglobin 7.1 g/dL (14.0-18.0)
[2022-12-25] MEDS ORDERED: Calcium Carbonate 500 MG ChewTAB PO SCH (10:30)
[2022-12-25] MEDS ORDERED: EPOETIN ALFA-EPBX (ESRD) 10,000 UNITS/ML VIAL SC SCH (10:30)
[2022-12-25] MEDS ORDERED: Epoetin (ESRD) 10,000 UNITS/ML VIAL SC SCH (10:45)
[2022-12-25] MEDS ORDERED: Epoetin (ESRD) 10,000 UNITS/ML VIAL IVP SCH (12:00)
[2022-12-25] MEDS: Cefepime 1 GM in Sodium Chloride 0.9% 100 ML IVPB SCH (16:46)
[2022-12-25] MEDS: Pantoprazole 40 MG VIAL IVP SCH (21:10)
[2022-12-25] MEDS: Calcium Carbonate 500 MG ChewTAB PO SCH (21:10)
[2022-12-25] MEDS: Insulin Glargine 30 UNITS/0.3 ML VIAL SC SCH (21:10)
[2022-12-26] MEDS: Levothyroxine Sodium 100 MCG TAB PO SCH (05:38)
[2022-12-26] MEDS: HumaLOG 300 UNITS/3 ML VIAL SC PRN (05:39)
[2022-12-26 06:14] LABS: #Basophils 0.1 thou/uL (0.0-0.2); #Eosinphils 0.6 thou/uL (0.0-0.7); #Monocytes 0.4 thou/uL (0.11-0.59); #Neutrophils 2.9 thou/uL (1.40-6.50); %Basophils 1.3 % (0.0-1.0); %Eosinophils 12.6 % (0.0-10.0); %Lymphocytes 14.3 % (21.0-51.0); %Monocytes 8.9 % (0.0-10.0); %Neutrophils 62.7 % (42.0-75.0); Hematocrit 24.4 % (42.0-52.0); Hemoglobin 7.6 g/dL (14.0-18.0); Mean Corpuscular HGB CONC 31.1 g/dL (32.0-36.0); Mean Corpuscular Hemoglobin 29.5 pg (27.0-31.0); Mean Corpuscular Volume 94.6 fl (78.0-98.0); Mean Platelet Volume 10.4 fL (7.4-10.4); Platelet Count 165 10x3/uL (130-400); RBC Distribution Width 15.9 % (11.5-14.5); Red Blood Cell (RBC) Count 2.58 mill/uL (4.70-6.10); White Blood Cell (WBC) Count 4.6 10x3/uL (4.8-10.8)
[2022-12-26 06:38] LABS: Phosphorus 3.5 mg/dL (2.3-4.7)
[2022-12-26 06:42] LABS: Anion Gap 12 mmol/L (10-20); BUN (Urea Nitrogen) 27 mg/dL (8.4-25.7); Calc. Creatinine Clearance 22 mL/min (70-130); Calcium 7.1 mg/dL (7.8-10.44); Carbon Dioxide 24 mmol/L (22-29); Chloride 103 mmol/L (98-107); Estimated GFR 18; Glucose 202 mg/dL (70-105); Potassium 4.4 mmol/L (3.5-5.1); Sodium 135 mmol/L (136-145)
[2022-12-26 06:47] LABS: Vancomycin, Random 10.3 ug/mL (See Comment)
[2022-12-26] MEDS: Ondansetron PF 4 MG/2 ML Vial IVP PRN (07:31)
[2022-12-26] MEDS: Calcium Carbonate 500 MG ChewTAB PO SCH ×2 (07:32→21:03)
[2022-12-26] MEDS: Pantoprazole 40 MG VIAL IVP SCH ×2 (07:32→21:03)
[2022-12-26] MEDS ORDERED: Epoetin (ESRD) 10,000 UNITS/ML VIAL IVP SCH (12:00)
[2022-12-26 15:18] LABS: Urea Nitrogen-24Hr 1.8 g/24 hr (12-20)
[2022-12-26] MEDS: Cefepime 1 GM in Sodium Chloride 0.9% 100 ML IVPB SCH (15:47)
[2022-12-26 16:24] LABS: Body Surface Area 1.86
[2022-12-26 16:31] LABS: Creatinine, Urine 70.22 mg/dL (63-166)
[2022-12-26] MEDS ORDERED: Vancomycin 1 GM in Premix 1 BAG IVPB SCH (17:00)
[2022-12-26] MEDS: guaiFENesin/Codeine 200 mg/20 mg 10 ml Cup PO PRN (17:49)
[2022-12-26] MEDS: Acetaminophen 325 MG TAB PO PRN (21:03)
[2022-12-26] MEDS: Insulin Glargine 30 UNITS/0.3 ML VIAL SC SCH (21:05)
[2022-12-27] MEDS: Levothyroxine Sodium 100 MCG TAB PO SCH (05:46)
[2022-12-27 07:23] LABS: Anion Gap 9 mmol/L (10-20); BUN (Urea Nitrogen) 20 mg/dL (8.4-25.7); Calc. Creatinine Clearance 26 mL/min (70-130); Calcium 7.5 mg/dL (7.8-10.44); Carbon Dioxide 29 mmol/L (22-29); Chloride 100 mmol/L (98-107); Estimated GFR 21; Glucose 90 mg/dL (70-105); Sodium 134 mmol/L (136-145)
[2022-12-27] MEDS ORDERED: EPOETIN ALFA-EPBX (ESRD) 10,000 UNITS/ML VIAL IVP SCH (09:00)
[2022-12-27] MEDS: Pantoprazole 40 MG VIAL IVP SCH (09:05)
[2022-12-27] MEDS: Calcium Carbonate 500 MG ChewTAB PO SCH (09:05)
[2022-12-27] MEDS: guaiFENesin/Codeine 200 mg/20 mg 10 ml Cup PO PRN (11:10)
[2022-12-27] MEDS: Acetaminophen 325 MG TAB PO PRN (14:56)
[2022-12-27 17:38] VITALS: BP 162/93; TEMP 98.2
== END 2022-12-27 17:30 | disposition home or self-care (01) | DRG 871 ==
LOC: ERS 12:06 → T4-A 17:39 → OBSVTOIN 12-24 17:17
PROVIDERS: ADMIT Hospitalist; ATTEND Internal Medicine
PROC: 3E03329 Introduction of Other Anti-infective into Peripheral Vein, Percutaneous Approach (ICD-10-PCS; principal; 2022-12-22)
PROC: 5A1D70Z Performance of Urinary Filtration, Intermittent, Less than 6 Hours Per Day (ICD-10-PCS; 2022-12-23)
PROC: 5A1D70Z Performance of Urinary Filtration, Intermittent, Less than 6 Hours Per Day (ICD-10-PCS; 2022-12-26)
DX: A41.9 Sepsis, unspecified organism (principal); N18.6 End stage renal disease; I50.22 Chronic systolic (congestive) heart failure; I13.2 Hypertensive heart and chronic kidney disease with heart failure and with stage 5 chronic kidney disease, or end stage renal disease; D63.1 Anemia in chronic kidney disease; T68.XXXA Hypothermia, initial encounter; E11.22 Type 2 diabetes mellitus with diabetic chronic kidney disease; E11.649 Type 2 diabetes mellitus with hypoglycemia without coma; E83.51 Hypocalcemia; Z99.2 Dependence on renal dialysis; Z79.899 Other long term (current) drug therapy; Z98.890 Other specified postprocedural states; Z79.4 Long term (current) use of insulin; Z79.890 Hormone replacement therapy; Z87.891 Personal history of nicotine dependence; Z82.49 Family history of ischemic heart disease and other diseases of the circulatory system
CPT/HCPCS: 36415; 36416; 70450; 71045; 71250; 72125; 74177; 80048; 80053; 80202; 81001; 82274; 82575; 82805; 83605; 83735; 84100; 84145; 84439; 84443; 84484; 84540; 85025; 86850; 86900; 86901; 87040; 87086; 87505; 90935; 93005; 96372; 96374; 96375; 96376; C9113; G0257; G0378; J0692; J1644; J1815; J2060; J2405; J3370; J3370-JW; J3490; J7050; Q4081

== ENCOUNTER 2023-07-26 09:26 | Outpatient (CLI) | payer OTHER | END 2023-07-26 09:27 | disposition home or self-care (01) | LOC: EKG 09:26 | PROVIDERS: ATTEND Internal Medicine Nephrology | DX: Z01.810 Encounter for preprocedural cardiovascular examination (principal); N18.6 End stage renal disease | CPT/HCPCS: 93005; 93010 ==

== ENCOUNTER 2023-08-04 17:20 | Inpatient (IN) | payer OTHER ==
[2023-08-04 18:04] LABS: #Basophils Less than 0.03 10x3/uL (0.0-0.2); #Eosinphils Less than 0.03 10x3/uL (0.0-0.7); %Basophils 0.3 % (0.0-1.0); %Eosinophils 0.2 % (0.0-10.0); %Neutrophils 88.2 % (42.0-75.0); Hematocrit 28.1 % (42.0-52.0); Hemoglobin 9.1 g/dL (14.0-18.0); Mean Corpuscular HGB CONC 32.4 g/dL (32.0-36.0); Mean Corpuscular Hemoglobin 33.3 pg (27.0-31.0); Mean Corpuscular Volume 102.9 fL (78.0-98.0); Mean Platelet Volume 10.1 fL (7.4-10.4); Platelet Count 121 10x3/uL (130-400); RBC Distribution Width 15.7 % (11.5-14.5); Red Blood Cell (RBC) Count 2.73 mill/uL (4.70-6.10)
[2023-08-04] MEDS ORDERED: Cefepime 2 GM VIAL ONE (18:08)
[2023-08-04] MEDS ORDERED: Sodium Chloride 0.9% 100 ML ONE (18:08)
[2023-08-04] MEDS ORDERED: Morphine 4 MG/ML VIAL ONE (18:18)
[2023-08-04] MEDS ORDERED: Ondansetron PF 4 MG/2 ML Vial ONE (18:19)
[2023-08-04 18:28] LABS: ALT (SGPT) 172 U/L (8-55); AST (SGOT) 120 U/L (5-34); Alkaline Phosphatase 295 U/L (40-110); Anion Gap 17 mmol/L (10-20); BUN (Urea Nitrogen) 39 mg/dL (8.4-25.7); Bilirubin, Total 0.7 mg/dL (0.2-1.2); CK (CPK) 257 U/L (30-200); Calc. Creatinine Clearance 0 mL/min (70-130); Calcium 7.1 mg/dL (7.8-10.44); Carbon Dioxide 19 mmol/L (22-29); Chloride 101 mmol/L (98-107); Estimated GFR 11; Globulin 3.3 g/dL (2.4-3.5); Glucose 169 mg/dL (70-105); Lipase 4 U/L (8-78); Magnesium 1.6 mg/dL (1.6-2.6); Potassium 4.1 mmol/L (3.5-5.1); Protein, Total 5.3 g/dL (6.0-8.3); Sodium 133 mmol/L (136-145)
[2023-08-04 18:37] LABS: Critical Call Chem Troponin I NUR.CT6 @1836; Troponin I 0.407 ng/mL (< 0.028)
[2023-08-04 19:30] LABS: INR-International Normal Ratio 1.4; Prothrombin Time 17.4 sec (12.0-14.7)
[2023-08-04] MEDS ORDERED: Aspirin Chewable 81 MG TAB ONE (20:43)
[2023-08-04 22:12] LABS: Critical Call Chem Troponin I RESULT DECREASING
[2023-08-04 22:13] LABS: Troponin I 0.366 ng/mL (< 0.028)
[2023-08-04 22:22] VITALS: BMI 27.5
[2023-08-04] MEDS ORDERED: Acetaminophen 325 MG TAB PO PRN (22:30)
[2023-08-04] MEDS ORDERED: Ondansetron PF 4 MG/2 ML Vial IVP PRN ×2 (22:30→22:46)
[2023-08-04] MEDS ORDERED: Ondansetron ODT 4 MG TAB SL PRN (22:30)
[2023-08-04] MEDS ORDERED: Acetaminophen 650 MG Suppository PR PRN (22:46)
[2023-08-04] MEDS ORDERED: Glucagon 1 MG/ML KIT IM PRN (22:52)
[2023-08-04] MEDS ORDERED: Dextrose 5% in Water 1,000 ML IV PRN (22:52)
[2023-08-04 23:56] LABS: Hemoglobin A1c 7.6 % (4.0-6.0)
[2023-08-05] MEDS: HYDROcodone/Acetaminophen 7.5/325 mg Tablet PO SCH (00:55)
[2023-08-05] MEDS: Vancomycin (BATCH) 1.5 GM in Premix 1 BAG IVPB SCH (00:58)
[2023-08-05 01:02] LABS: Critical Call Chem Troponin I RESULT DECREASING; Troponin I 0.315 ng/mL (< 0.028)
[2023-08-05 04:45] LABS: #Basophils 0.03 10x3/uL (0.0-0.2); %Basophils 0.5 % (0.0-1.0); %Eosinophils 0.6 % (0.0-10.0); %Lymphocytes 7.3 % (21.0-51.0); %Monocytes 7.3 % (0.0-10.0); Hematocrit 29.9 % (42.0-52.0); Hemoglobin 9.4 g/dL (14.0-18.0); Mean Corpuscular HGB CONC 31.4 g/dL (32.0-36.0); Mean Corpuscular Hemoglobin 33.7 pg (27.0-31.0); Mean Corpuscular Volume 107.2 fL (78.0-98.0); Mean Platelet Volume 10.2 fL (7.4-10.4); Platelet Count 117 10x3/uL (130-400); RBC Distribution Width 15.6 % (11.5-14.5); Red Blood Cell (RBC) Count 2.79 mill/uL (4.70-6.10)
[2023-08-05 05:04] LABS: ALT (SGPT) 142 U/L (8-55); AST (SGOT) 83 U/L (5-34); Albumin 1.8 g/dL (3.5-5.0); Alkaline Phosphatase 264 U/L (40-110); Anion Gap 15 mmol/L (10-20); BUN (Urea Nitrogen) 43 mg/dL (8.4-25.7); Bilirubin, Total 0.6 mg/dL (0.2-1.2); Calc. Creatinine Clearance 14 mL/min (70-130); Calcium 6.9 mg/dL (7.8-10.44); Carbon Dioxide 19 mmol/L (22-29); Chloride 102 mmol/L (98-107); Estimated GFR 11; Globulin 3.3 g/dL (2.4-3.5); Glucose 255 mg/dL (70-105); Potassium 4.3 mmol/L (3.5-5.1); Protein, Total 5.1 g/dL (6.0-8.3); Sodium 132 mmol/L (136-145)
[2023-08-05] MEDS: HumaLOG 300 UNITS/3 ML VIAL SC PRN (05:56)
[2023-08-05] MEDS: Famotidine/PF 20 mg/2ml Vial SLOW IVP SCH (07:48)
[2023-08-05] MEDS: hydrALAZINE 25 MG TAB PO SCH ×2 (08:33→21:21)
[2023-08-05] MEDS: Carvedilol 25 MG TAB PO SCH (08:33)
[2023-08-05] MEDS: Famotidine 20 MG TAB PO SCH (08:34)
[2023-08-05] MEDS: Magnesium Oxide 400 MG TAB PO SCH (08:34)
[2023-08-05] MEDS: Isosorbide Dinitrate 20 MG TAB PO SCH ×2 (08:34→21:18)
[2023-08-05] MEDS ORDERED: Heparin 10,000 UNITS/ 10 ML VIAL ONE (08:58)
[2023-08-05] MEDS: Acetaminophen 325 MG TAB PO PRN (09:52)
[2023-08-05] MEDS ORDERED: Albumin 25% 25 GM (100 mL) BOT IVPB PRN (13:29)
[2023-08-05] MEDS: Activase 2 MG VIAL CATH SCH (16:42)
[2023-08-05] MEDS: Sterile Water 10 ML VIAL IVP SCH (16:42)
[2023-08-05] MEDS: Piperacillin/Tazobactam 3.375 GM in Sodium Chloride 0.9% 100 ML IVPB SCH ×2 (17:05→21:51)
[2023-08-05] MEDS ORDERED: Cefepime 1 GM in Sodium Chloride 0.9% 100 ML IVPB SCH (18:00)
[2023-08-05 19:03] LABS: HBSAB Concentration Less than 8.00 mIU/mL; HBsAg Index 0.21 S/CO (0-0.99); Hep B Core Total Ab NONREACTIVE (NonReactive); Hep B Core Total Index 0.12 S/CO (0-0.79); Hep B Surf AB NONREACTIVE (NonReactive); Hep B Surf Ag NONREACTIVE S/CO (NonReactive); Hep C IgG Ab NONREACTIVE S/CO (NonReactive); Hep C Index 0.15 S/CO (0-0.79)
[2023-08-05] MEDS: Atorvastatin Calcium 20 MG TAB PO SCH (20:09)
[2023-08-05] MEDS ORDERED: hydrALAZINE 25 MG TAB PO SCH (20:27)
[2023-08-05] MEDS ORDERED: Cefepime 0.5 GM, Admixture Fee 1 EACH in Sodium Chloride 0.9% 50 ML IVPB SCH (21:00)
[2023-08-05] MEDS: Insulin Glargine 30 UNITS/0.3 ML VIAL SC SCH (21:15)
[2023-08-05] MEDS: HYDROcodone/Acetaminophen 5/325 mg Tablet PO PRN (21:16)
[2023-08-06] MEDS: Levothyroxine Sodium 100 MCG TAB PO SCH (05:33)
[2023-08-06] MEDS: HYDROcodone/Acetaminophen 5/325 mg Tablet PO PRN (09:05)
[2023-08-06] MEDS: Albumin 25% 25 GM (100 mL) BOT IVPB SCH (12:59)
[2023-08-06] MEDS: Carvedilol 6.25 MG TAB PO SCH (16:27)
[2023-08-06] MEDS ORDERED: Famotidine/PF 20 mg/2ml Vial SLOW IVP SCH (21:00)
[2023-08-07 04:15] LABS: #Basophils 0.04 10x3/uL (0.0-0.2); %Basophils 1.2 % (0.0-1.0); %Eosinophils 4.3 % (0.0-10.0); %Lymphocytes 13.1 % (21.0-51.0); %Monocytes 11.6 % (0.0-10.0); %Neutrophils 69.5 % (42.0-75.0); Hematocrit 25.9 % (42.0-52.0); Hemoglobin 8.1 g/dL (14.0-18.0); Mean Corpuscular HGB CONC 31.3 g/dL (32.0-36.0); Mean Corpuscular Volume 108.8 fL (78.0-98.0); Mean Platelet Volume 11.1 fL (7.4-10.4); Platelet Count 90 10x3/uL (130-400); RBC Distribution Width 15.5 % (11.5-14.5); Red Blood Cell (RBC) Count 2.38 mill/uL (4.70-6.10)
[2023-08-07 04:30] LABS: Anion Gap 20 mmol/L (10-20); BUN (Urea Nitrogen) 48 mg/dL (8.4-25.7); Calc. Creatinine Clearance 12 mL/min (70-130); Carbon Dioxide 17 mmol/L (22-29); Chloride 104 mmol/L (98-107); Estimated GFR 9; Glucose 131 mg/dL (70-105); Potassium 5.1 mmol/L (3.5-5.1); Sodium 136 mmol/L (136-145)
[2023-08-07] MEDS ORDERED: Heparin 10,000 UNITS/ 10 ML VIAL ONE (08:44)
[2023-08-07] MEDS ORDERED: Epoetin (ESRD) 10,000 UNITS/ML VIAL IVP SCH (12:00)
[2023-08-07] MEDS ORDERED: AMPicillin 2 GM in Sodium Chloride 0.9% 100 ML IVPB SCH (12:00)
[2023-08-07] MEDS: EPOETIN ALFA-EPBX (ESRD) 10,000 UNITS/ML VIAL IVP SCH (15:17)
[2023-08-07] MEDS: Ampicillin 2 GM in Sodium Chloride 0.9% 100 ML IVPB SCH ×2 (16:37→16:44)
[2023-08-07] MEDS ORDERED: Famotidine/PF 20 mg/2ml Vial SLOW IVP SCH (21:00)
[2023-08-07] MEDS: Famotidine/PF 20 mg/2ml Vial SLOW IVP SCH (21:19)
[2023-08-07] MEDS: Famotidine 20 MG TAB PO SCH (21:20)
[2023-08-07] MEDS: HumaLOG 300 UNITS/3 ML VIAL SC PRN (21:33)
[2023-08-08] MEDS: Melatonin 3 MG TAB PO PRN (00:08)
[2023-08-08 05:11] LABS: #Basophils 0.03 10x3/uL (0.0-0.2); %Basophils 0.7 % (0.0-1.0); %Eosinophils 2.1 % (0.0-10.0); %Lymphocytes 11.2 % (21.0-51.0); %Monocytes 10.7 % (0.0-10.0); %Neutrophils 74.8 % (42.0-75.0); Hemoglobin 8.9 g/dL (14.0-18.0); Mean Corpuscular HGB CONC 31.8 g/dL (32.0-36.0); Mean Corpuscular Hemoglobin 33.7 pg (27.0-31.0); Mean Corpuscular Volume 106.1 fL (78.0-98.0); Mean Platelet Volume 10.8 fL (7.4-10.4); Platelet Count 122 10x3/uL (130-400); RBC Distribution Width 15.2 % (11.5-14.5); Red Blood Cell (RBC) Count 2.64 mill/uL (4.70-6.10)
[2023-08-08 05:28] LABS: Anion Gap 14 mmol/L (10-20); BUN (Urea Nitrogen) 23 mg/dL (8.4-25.7); Calc. Creatinine Clearance 18 mL/min (70-130); Calcium 7.1 mg/dL (7.8-10.44); Carbon Dioxide 23 mmol/L (22-29); Chloride 104 mmol/L (98-107); Estimated GFR 14; Glucose 304 mg/dL (70-105); Sodium 137 mmol/L (136-145)
[2023-08-08] MEDS: Morphine 4 MG/ML VIAL SLOW IVP SCH (08:58)
[2023-08-08] MEDS ORDERED: Nystatin 500,000 UNITS/5 ML UDCUP SSW SCH (09:00)
[2023-08-08] MEDS: Lorazepam 2 MG/ML VIAL SLOW IVP SCH (12:01)
[2023-08-09 05:56] LABS: Anion Gap 15 mmol/L (10-20); BUN (Urea Nitrogen) 28 mg/dL (8.4-25.7); Calc. Creatinine Clearance 15 mL/min (70-130); Carbon Dioxide 21 mmol/L (22-29); Chloride 107 mmol/L (98-107); Estimated GFR 12; Glucose 83 mg/dL (70-105); Sodium 139 mmol/L (136-145)
[2023-08-09 06:23] LABS: #Basophils 0.04 10x3/uL (0.0-0.2); %Basophils 0.8 % (0.0-1.0); %Eosinophils 3.7 % (0.0-10.0); %Lymphocytes 12.8 % (21.0-51.0); %Monocytes 11.1 % (0.0-10.0); Hematocrit 27.9 % (42.0-52.0); Hemoglobin 8.8 g/dL (14.0-18.0); Mean Corpuscular HGB CONC 31.5 g/dL (32.0-36.0); Mean Corpuscular Hemoglobin 33.3 pg (27.0-31.0); Mean Corpuscular Volume 105.7 fL (78.0-98.0); Mean Platelet Volume 10.6 fL (7.4-10.4); Platelet Count 133 10x3/uL (130-400); RBC Distribution Width 15.5 % (11.5-14.5); Red Blood Cell (RBC) Count 2.64 mill/uL (4.70-6.10)
[2023-08-09] MEDS ORDERED: Heparin 10,000 UNITS/ 10 ML VIAL ONE (10:26)
[2023-08-09] MEDS: Acetaminophen 500 MG TAB PO SCH (22:22)
[2023-08-09] MEDS: Lidocaine 4% Patch TD SCH (22:23)
[2023-08-10] MEDS: HYDROcodone/Acetaminophen 5/325 mg Tablet PO SCH (02:17)
[2023-08-10 05:32] LABS: #Basophils 0.05 10x3/uL (0.0-0.2); %Eosinophils 3.5 % (0.0-10.0); %Monocytes 12.9 % (0.0-10.0); %Neutrophils 65.2 % (42.0-75.0); Hematocrit 34.6 % (42.0-52.0); Mean Corpuscular HGB CONC 31.8 g/dL (32.0-36.0); Mean Corpuscular Hemoglobin 32.9 pg (27.0-31.0); Mean Corpuscular Volume 103.6 fL (78.0-98.0); Mean Platelet Volume 10.1 fL (7.4-10.4); Platelet Count 172 10x3/uL (130-400); RBC Distribution Width 15.3 % (11.5-14.5); Red Blood Cell (RBC) Count 3.34 mill/uL (4.70-6.10)
[2023-08-10 06:15] LABS: Anion Gap 14 mmol/L (10-20); BUN (Urea Nitrogen) 16 mg/dL (8.4-25.7); Calc. Creatinine Clearance 21 mL/min (70-130); Calcium 7.2 mg/dL (7.8-10.44); Carbon Dioxide 25 mmol/L (22-29); Chloride 103 mmol/L (98-107); Estimated GFR 18; Glucose 199 mg/dL (70-105); Potassium 4.1 mmol/L (3.5-5.1); Sodium 138 mmol/L (136-145)
[2023-08-10] MEDS: HYDROcodone/Acetaminophen 5/325 mg Tablet PO PRN (09:20)
[2023-08-10] MEDS: Transdermal Patch Removal TOP SCH (10:30)
[2023-08-10 15:19] VITALS: BMI 27.1
[2023-08-11] MEDS ORDERED: Heparin 10,000 UNITS/ 10 ML VIAL ONE ×2 (09:39→15:20)
[2023-08-11 12:48] LABS: Potassium 4.5 mmol/L (3.5-5.1)
[2023-08-11] MEDS ORDERED: PROPOFOL 20 ML ONE (15:09)
[2023-08-11] MEDS ORDERED: fentaNYL 50 mcg/mL 1 mL Vial ONE (15:09)
[2023-08-11] MEDS ORDERED: Ketamine In 0.9 % NaCl 50 MG/5 ML SYRINGE ONE (15:09)
[2023-08-11] MEDS ORDERED: Glycopyrrolate 0.2 MG/ML 5 ML SYRINGE ONE (15:16)
[2023-08-11] MEDS ORDERED: EPINEPHrine 1 MG/ML VIAL ONE (15:20)
[2023-08-11] MEDS ORDERED: Lidocaine 2% PF 5 ML VIAL ONE (15:21)
[2023-08-11] MEDS ORDERED: Bupivacaine PF 0.5% 30 ML VIAL ONE (15:21)
[2023-08-11] MEDS ORDERED: ePHEDrine Sulfate 50 MG/10 ML VIAL ONE (16:01)
[2023-08-11] MEDS ORDERED: Morphine Sulfate 2 MG/ML SYRINGE SLOW IVP PRN (16:20)
[2023-08-11] MEDS ORDERED: Promethazine HCl 25 MG/ML VIAL IM PRN (16:20)
[2023-08-11] MEDS ORDERED: Ondansetron HCl/PF 4 MG/2 ML Vial IVP PRN (16:20)
[2023-08-12] MEDS: Ampicillin 2 GM in Sodium Chloride 0.9% 100 ML IVPB SCH (11:46)
[2023-08-12] MEDS: Ondansetron ODT 4 MG TAB PO PRN (17:31)
[2023-08-13 05:37] LABS: #Basophils Less than 0.03 10x3/uL (0.0-0.2); %Basophils 0.4 % (0.0-1.0); %Eosinophils 4.3 % (0.0-10.0); %Lymphocytes 10.9 % (21.0-51.0); %Monocytes 9.1 % (0.0-10.0); %Neutrophils 74.9 % (42.0-75.0); Hematocrit 32.6 % (42.0-52.0); Hemoglobin 10.2 g/dL (14.0-18.0); Mean Corpuscular HGB CONC 31.3 g/dL (32.0-36.0); Mean Corpuscular Hemoglobin 32.5 pg (27.0-31.0); Mean Corpuscular Volume 103.8 fL (78.0-98.0); Mean Platelet Volume 9.6 fL (7.4-10.4); Platelet Count 180 10x3/uL (130-400); RBC Distribution Width 15.2 % (11.5-14.5); Red Blood Cell (RBC) Count 3.14 mill/uL (4.70-6.10)
[2023-08-13 05:52] LABS: Anion Gap 16 mmol/L (10-20); BUN (Urea Nitrogen) 24 mg/dL (8.4-25.7); Calc. Creatinine Clearance 18 mL/min (70-130); Calcium 7.3 mg/dL (7.8-10.44); Carbon Dioxide 23 mmol/L (22-29); Chloride 102 mmol/L (98-107); Estimated GFR 15; Glucose 103 mg/dL (70-105); Potassium 4.5 mmol/L (3.5-5.1); Sodium 136 mmol/L (136-145)
[2023-08-14] MEDS ORDERED: Heparin 10,000 UNITS/ 10 ML VIAL ONE (08:40)
[2023-08-14] MEDS: Dextrose 50% Abboject 50 ML SYRINGE SLOW IVP PRN (11:22)
[2023-08-14] MEDS ORDERED: PROPOFOL 20 ML ONE (14:07)
[2023-08-14] MEDS ORDERED: Ketamine In 0.9 % NaCl 50 MG/5 ML SYRINGE ONE (14:14)
[2023-08-14] MEDS ORDERED: Dextrose 50% Abboject 50 ML SYRINGE ONE (14:32)
[2023-08-16 05:14] LABS: #Basophils Less than 0.03 10x3/uL (0.0-0.2); %Basophils 0.3 % (0.0-1.0); %Eosinophils 3.3 % (0.0-10.0); %Lymphocytes 11.8 % (21.0-51.0); %Monocytes 8.9 % (0.0-10.0); %Neutrophils 75.4 % (42.0-75.0); Hematocrit 28.9 % (42.0-52.0); Hemoglobin 9.1 g/dL (14.0-18.0); Mean Corpuscular HGB CONC 31.5 g/dL (32.0-36.0); Mean Corpuscular Hemoglobin 33.2 pg (27.0-31.0); Mean Corpuscular Volume 105.5 fL (78.0-98.0); Mean Platelet Volume 8.8 fL (7.4-10.4); Platelet Count 140 10x3/uL (130-400); RBC Distribution Width 14.8 % (11.5-14.5); Red Blood Cell (RBC) Count 2.74 mill/uL (4.70-6.10)
[2023-08-16 05:32] LABS: Anion Gap 17 mmol/L (10-20); BUN (Urea Nitrogen) 24 mg/dL (8.4-25.7); Calc. Creatinine Clearance 20 mL/min (70-130); Calcium 7.4 mg/dL (7.8-10.44); Carbon Dioxide 21 mmol/L (22-29); Chloride 103 mmol/L (98-107); Estimated GFR 17; Glucose 124 mg/dL (70-105); Potassium 4.8 mmol/L (3.5-5.1); Sodium 136 mmol/L (136-145)
[2023-08-16] MEDS ORDERED: Heparin 10,000 UNITS/ 10 ML VIAL ONE (11:06)
[2023-08-17 05:21] LABS: Anion Gap 10 mmol/L (10-20); BUN (Urea Nitrogen) 18 mg/dL (8.4-25.7); Calc. Creatinine Clearance 28 mL/min (70-130); Calcium 7.2 mg/dL (7.8-10.44); Carbon Dioxide 26 mmol/L (22-29); Chloride 103 mmol/L (98-107); Estimated GFR 25; Glucose 64 mg/dL (70-105); Sodium 135 mmol/L (136-145)
[2023-08-18 16:29] VITALS: BP 162/98; TEMP 98.8
== END 2023-08-18 18:00 | disposition home or self-care (01) | DRG 280 ==
LOC: ERS 17:20 → 2SW 20:53 → 2NO 08-08 20:25
PROVIDERS: ADMIT Student in an Organized Health Care Education/Training Program; ATTEND Internal Medicine
PROC: 05PYX3Z Removal of Infusion Device from Upper Vein, External Approach (ICD-10-PCS; principal; 2023-08-04)
PROC: 06HM33Z Insertion of Infusion Device into Right Femoral Vein, Percutaneous Approach (ICD-10-PCS; 2023-08-04)
PROC: B51B1ZA Fluoroscopy of Right Lower Extremity Veins using Low Osmolar Contrast, Guidance (ICD-10-PCS; 2023-08-04)
PROC: 5A1D70Z Performance of Urinary Filtration, Intermittent, Less than 6 Hours Per Day (ICD-10-PCS; 2023-08-04)
PROC: 3E03329 Introduction of Other Anti-infective into Peripheral Vein, Percutaneous Approach (ICD-10-PCS; 2023-08-04)
PROC: 30233J1 Transfusion of Nonautologous Serum Albumin into Peripheral Vein, Percutaneous Approach (ICD-10-PCS; 2023-08-05)
PROC: 3E033XZ Introduction of Vasopressor into Peripheral Vein, Percutaneous Approach (ICD-10-PCS; 2023-08-11)
PROC: B245ZZ4 Ultrasonography of Left Heart, Transesophageal (ICD-10-PCS; 2023-08-14)
DX: T80.211A Bloodstream infection due to central venous catheter, initial encounter (principal); A41.50 Gram-negative sepsis, unspecified; I21.4 Non-ST elevation (NSTEMI) myocardial infarction; N18.6 End stage renal disease; A41.81 Sepsis due to Enterococcus; R65.21 Severe sepsis with septic shock; I13.2 Hypertensive heart and chronic kidney disease with heart failure and with stage 5 chronic kidney disease, or end stage renal disease; I50.42 Chronic combined systolic (congestive) and diastolic (congestive) heart failure; D61.818 Other pancytopenia; E87.20 Acidosis, unspecified; R79.89 Other specified abnormal findings of blood chemistry; E03.9 Hypothyroidism, unspecified; D63.1 Anemia in chronic kidney disease; I70.0 Atherosclerosis of aorta; G47.33 Obstructive sleep apnea (adult) (pediatric); I08.1 Rheumatic disorders of both mitral and tricuspid valves; R74.01 Elevation of levels of liver transaminase levels; E88.09 Other disorders of plasma-protein metabolism, not elsewhere classified; E11.22 Type 2 diabetes mellitus with diabetic chronic kidney disease; F32.A Depression, unspecified; Z98.890 Other specified postprocedural states; Z99.2 Dependence on renal dialysis
CPT/HCPCS: 36415; 36416; 71045; 74176; 76705; 78226; 80048; 80053; 82550; 83036; 83605; 83690; 83735; 83880; 84132; 84443; 84484; 85025; 85610; 85730; 86141; 86704; 86706; 86803; 87040; 87077; 87149; 87186; 87340; 90935; 93005; 93306; 93312; 96374; 96375; A6258; A9537; C1752; G0257; J0171; J0290; J0665; J0692; J1644; J1815; J2001; J2270; J2405; J2543; J2704; J3010; J3370; J3490; J7999; P9047; Q0162; Q5105; S0028

== ENCOUNTER 2023-08-23 13:54 | Inpatient (IN) | payer OTHER ==
[2023-08-23 15:17] LABS: #Basophils 0.05 10x3/uL (0.0-0.2); %Basophils 1.2 % (0.0-1.0); %Eosinophils 2.9 % (0.0-10.0); %Lymphocytes 11.2 % (21.0-51.0); %Monocytes 8.3 % (0.0-10.0); %Neutrophils 76.2 % (42.0-75.0); Hematocrit 30.8 % (42.0-52.0); Hemoglobin 10.1 g/dL (14.0-18.0); Mean Corpuscular HGB CONC 32.8 g/dL (32.0-36.0); Mean Corpuscular Hemoglobin 33.6 pg (27.0-31.0); Mean Corpuscular Volume 102.3 fL (78.0-98.0); Mean Platelet Volume 9.7 fL (7.4-10.4); Platelet Count 150 10x3/uL (130-400); RBC Distribution Width 14.8 % (11.5-14.5); Red Blood Cell (RBC) Count 3.01 mill/uL (4.70-6.10)
[2023-08-23] MEDS ORDERED: Morphine 4 MG/ML VIAL ONE (15:25)
[2023-08-23 15:26] LABS: Lipase 7 U/L (8-78); Magnesium 1.7 mg/dL (1.6-2.6)
[2023-08-23 15:27] LABS: Acetaminophen Less than 10 mcg/mL (10.0-30.0); Alcohol Less than 10.0 mg/dL (Less than 10); Salicylate Less than 8.0 mg/dL (15.0-30.0)
[2023-08-23] MEDS ORDERED: Ondansetron PF 4 MG/2 ML Vial ONE (15:29)
[2023-08-23 15:30] LABS: CRP,High Sensitivity (Inhouse) 3.08 mg/dL (< or = 0.5)
[2023-08-23 15:31] LABS: ALT (SGPT) 35 U/L (8-55); AST (SGOT) 47 U/L (5-34); Albumin 2.2 g/dL (3.5-5.0); Alkaline Phosphatase 227 U/L (40-110); Anion Gap 15 mmol/L (10-20); BUN (Urea Nitrogen) 35 mg/dL (8.4-25.7); Bilirubin, Total 0.4 mg/dL (0.2-1.2); Calc. Creatinine Clearance 0 mL/min (70-130); Calcium 7.3 mg/dL (7.8-10.44); Carbon Dioxide 21 mmol/L (22-29); Chloride 103 mmol/L (98-107); Estimated GFR 14; Globulin 3.3 g/dL (2.4-3.5); Glucose 228 mg/dL (70-105); Potassium 4.2 mmol/L (3.5-5.1); Protein, Total 5.5 g/dL (6.0-8.3); Sodium 135 mmol/L (136-145)
[2023-08-23 15:34] LABS: Troponin I 0.035 ng/mL (< 0.028)
[2023-08-23] MEDS ORDERED: Sodium Chloride 0.9% 100 ML ONE (15:49)
[2023-08-23] MEDS ORDERED: Cefepime 2 GM VIAL ONE (15:49)
[2023-08-23] MEDS ORDERED: Senokot S 8.6-50 MG TAB PO PRN (16:17)
[2023-08-23] MEDS ORDERED: Ondansetron PF 4 MG/2 ML Vial IVP PRN (16:17)
[2023-08-23] MEDS ORDERED: Glucagon 1 MG/ML KIT IM PRN (16:58)
[2023-08-23] MEDS ORDERED: Dextrose 50% Abboject 50 ML SYRINGE SLOW IVP PRN (16:58)
[2023-08-23] MEDS ORDERED: Dextrose 5% in Water 1,000 ML IV PRN (16:58)
[2023-08-23 17:53] VITALS: BMI 22.1
[2023-08-23 20:46] LABS: Troponin I 0.025 ng/mL (< 0.028)
[2023-08-23] MEDS ORDERED: Vancomycin 1 GM in Premix 1 BAG IVPB SCH (21:00)
[2023-08-24] MEDS: HYDROcodone/Acetaminophen 5/325 mg Tablet PO PRN (00:25)
[2023-08-24] MEDS: Meropenem 500 MG in Sodium Chloride 0.9% 100 ML IVPB SCH (00:28)
[2023-08-24] MEDS: HumaLOG 300 UNITS/3 ML VIAL SC PRN (06:03)
[2023-08-24] MEDS: Transdermal Patch Removal TOP SCH ×2 (06:06→22:40)
[2023-08-24 06:20] LABS: #Basophils 0.06 10x3/uL (0.0-0.2); %Basophils 1.6 % (0.0-1.0); %Eosinophils 6.1 % (0.0-10.0); %Lymphocytes 13.3 % (21.0-51.0); %Monocytes 8.5 % (0.0-10.0); %Neutrophils 70.5 % (42.0-75.0); Hematocrit 34.2 % (42.0-52.0); Hemoglobin 10.8 g/dL (14.0-18.0); Mean Corpuscular HGB CONC 31.6 g/dL (32.0-36.0); Mean Corpuscular Hemoglobin 32.6 pg (27.0-31.0); Mean Corpuscular Volume 103.3 fL (78.0-98.0); Mean Platelet Volume 9.7 fL (7.4-10.4); Platelet Count 146 10x3/uL (130-400); RBC Distribution Width 14.9 % (11.5-14.5); Red Blood Cell (RBC) Count 3.31 mill/uL (4.70-6.10)
[2023-08-24 06:24] LABS: Vancomycin, Random Less than 1.4 ug/mL (See Comment)
[2023-08-24 06:35] LABS: Anion Gap 14 mmol/L (10-20); BUN (Urea Nitrogen) 35 mg/dL (8.4-25.7); Calc. Creatinine Clearance 14 mL/min (70-130); Carbon Dioxide 22 mmol/L (22-29); Chloride 104 mmol/L (98-107); Estimated GFR 14; Glucose 206 mg/dL (70-105); Potassium 4.3 mmol/L (3.5-5.1); Sodium 136 mmol/L (136-145)
[2023-08-24] MEDS: Vancomycin (BATCH) 1.5 GM in Premix 1 BAG IVPB SCH (07:45)
[2023-08-24] MEDS: Meropenem 1 GM in Sodium Chloride 0.9% 100 ML IVPB SCH (07:45)
[2023-08-24] MEDS: Lidocaine 4% Patch TD SCH ×2 (07:45→08:56)
[2023-08-24] MEDS: Vancomycin (BATCH) 1.25 GM in Premix 1 BAG IVPB SCH (08:55)
[2023-08-24] MEDS: Pantoprazole DR 40 MG TAB PO SCH (08:56)
[2023-08-24] MEDS: Magnesium Oxide 400 MG TAB PO SCH (08:56)
[2023-08-24] MEDS: hydrALAZINE 25 MG TAB PO SCH (09:02)
[2023-08-24] MEDS ORDERED: Heparin 10,000 UNITS/ 10 ML VIAL ONE (09:33)
[2023-08-24 10:52] VITALS: BMI 22.1
[2023-08-24] MEDS ORDERED: Vancomycin Hemodialysis Sliding Scale FS SCH (17:00)
[2023-08-24] MEDS: Atorvastatin Calcium 20 MG TAB PO SCH (22:30)
[2023-08-25] MEDS: Levothyroxine Sodium 100 MCG TAB PO SCH (06:39)
[2023-08-25 07:07] LABS: Vancomycin, Trough 11.5 ug/mL
[2023-08-25] MEDS: Vancomycin HCl 750 MG in Sodium Chloride 0.9% 250 ML 250 ML IVPB SCH (16:12)
[2023-08-25] MEDS: Gabapentin 100 MG CAP PO SCH (16:13)
[2023-08-25] MEDS: valACYclovir 500 MG TAB PO SCH (17:24)
[2023-08-26 04:34] LABS: #Basophils 0.06 10x3/uL (0.0-0.2); %Basophils 1.2 % (0.0-1.0); %Eosinophils 5.7 % (0.0-10.0); %Lymphocytes 15.2 % (21.0-51.0); %Monocytes 8.7 % (0.0-10.0); Hematocrit 34.5 % (42.0-52.0); Hemoglobin 10.8 g/dL (14.0-18.0); Mean Corpuscular HGB CONC 31.3 g/dL (32.0-36.0); Mean Corpuscular Hemoglobin 33.3 pg (27.0-31.0); Mean Corpuscular Volume 106.5 fL (78.0-98.0); Mean Platelet Volume 9.6 fL (7.4-10.4); Platelet Count 140 10x3/uL (130-400); Red Blood Cell (RBC) Count 3.24 mill/uL (4.70-6.10)
[2023-08-26 04:47] LABS: Anion Gap 15 mmol/L (10-20); BUN (Urea Nitrogen) 16 mg/dL (8.4-25.7); Calc. Creatinine Clearance 19 mL/min (70-130); Calcium 7.4 mg/dL (7.8-10.44); Carbon Dioxide 24 mmol/L (22-29); Chloride 103 mmol/L (98-107); Estimated GFR 20; Glucose 286 mg/dL (70-105); Potassium 4.3 mmol/L (3.5-5.1); Sodium 138 mmol/L (136-145)
[2023-08-26] MEDS: Isosorbide Dinitrate 20 MG TAB PO SCH (08:26)
[2023-08-26] MEDS: Carvedilol 6.25 MG TAB PO SCH (08:26)
[2023-08-26] MEDS: Insulin Glargine 30 UNITS/0.3 ML VIAL SC SCH (22:10)
[2023-08-27] MEDS: Morphine 4 MG/ML VIAL SLOW IVP PRN (02:28)
[2023-08-27 04:28] LABS: #Basophils Less than 0.03 10x3/uL (0.0-0.2); %Basophils 0.5 % (0.0-1.0); %Eosinophils 8.4 % (0.0-10.0); %Lymphocytes 11.6 % (21.0-51.0); %Monocytes 7.4 % (0.0-10.0); %Neutrophils 71.9 % (42.0-75.0); Hematocrit 31.8 % (42.0-52.0); Mean Corpuscular HGB CONC 31.4 g/dL (32.0-36.0); Mean Corpuscular Hemoglobin 33.2 pg (27.0-31.0); Mean Corpuscular Volume 105.6 fL (78.0-98.0); Mean Platelet Volume 9.4 fL (7.4-10.4); Platelet Count 127 10x3/uL (130-400); RBC Distribution Width 14.9 % (11.5-14.5); Red Blood Cell (RBC) Count 3.01 mill/uL (4.70-6.10)
[2023-08-27 04:56] LABS: Anion Gap 16 mmol/L (10-20); BUN (Urea Nitrogen) 25 mg/dL (8.4-25.7); Calc. Creatinine Clearance 15 mL/min (70-130); Calcium 7.4 mg/dL (7.8-10.44); Carbon Dioxide 22 mmol/L (22-29); Chloride 105 mmol/L (98-107); Estimated GFR 15; Glucose 145 mg/dL (70-105); Potassium 4.5 mmol/L (3.5-5.1); Sodium 138 mmol/L (136-145)
[2023-08-28 04:30] LABS: #Basophils Less than 0.03 10x3/uL (0.0-0.2); %Basophils 0.5 % (0.0-1.0); %Eosinophils 10.6 % (0.0-10.0); %Lymphocytes 11.8 % (21.0-51.0); %Monocytes 6.7 % (0.0-10.0); %Neutrophils 70.2 % (42.0-75.0); Hematocrit 31.1 % (42.0-52.0); Hemoglobin 9.7 g/dL (14.0-18.0); Mean Corpuscular HGB CONC 31.2 g/dL (32.0-36.0); Mean Corpuscular Hemoglobin 33.1 pg (27.0-31.0); Mean Corpuscular Volume 106.1 fL (78.0-98.0); Mean Platelet Volume 9.7 fL (7.4-10.4); Platelet Count 124 10x3/uL (130-400); RBC Distribution Width 14.6 % (11.5-14.5); Red Blood Cell (RBC) Count 2.93 mill/uL (4.70-6.10)
[2023-08-28 04:41] LABS: Anion Gap 17 mmol/L (10-20); BUN (Urea Nitrogen) 33 mg/dL (8.4-25.7); Calc. Creatinine Clearance 13 mL/min (70-130); Calcium 7.4 mg/dL (7.8-10.44); Carbon Dioxide 22 mmol/L (22-29); Chloride 105 mmol/L (98-107); Estimated GFR 13; Glucose 65 mg/dL (70-105); Potassium 5.2 mmol/L (3.5-5.1); Sodium 139 mmol/L (136-145)
[2023-08-28 10:35] LABS: Vancomycin, Trough 12.4 ug/mL
[2023-08-28] MEDS ORDERED: Heparin 10,000 UNITS/ 10 ML VIAL ONE (12:30)
[2023-08-28] MEDS: Vancomycin 1 GM in Premix 1 BAG IVPB SCH (21:12)
[2023-08-29 06:19] LABS: Anion Gap 14 mmol/L (10-20); BUN (Urea Nitrogen) 17 mg/dL (8.4-25.7); Calc. Creatinine Clearance 19 mL/min (70-130); Calcium 7.3 mg/dL (7.8-10.44); Carbon Dioxide 23 mmol/L (22-29); Chloride 99 mmol/L (98-107); Estimated GFR 21; Glucose 414 mg/dL (70-105); Potassium 4.4 mmol/L (3.5-5.1); Sodium 132 mmol/L (136-145)
[2023-08-29 12:07] VITALS: BP 128/74; TEMP 97.6
[2023-08-29] MEDS: Acetaminophen 325 MG TAB PO PRN (14:28)
== END 2023-08-29 15:00 | disposition home or self-care (01) | DRG 551 ==
LOC: ERS 13:54 → ERHOLD 16:08 → 2NO 17:29
PROVIDERS: ADMIT Family Medicine; ATTEND Internal Medicine
DX: M46.45 Discitis, unspecified, thoracolumbar region (principal); N18.6 End stage renal disease; I13.2 Hypertensive heart and chronic kidney disease with heart failure and with stage 5 chronic kidney disease, or end stage renal disease; M46.25 Osteomyelitis of vertebra, thoracolumbar region; I50.22 Chronic systolic (congestive) heart failure; E11.69 Type 2 diabetes mellitus with other specified complication; E11.22 Type 2 diabetes mellitus with diabetic chronic kidney disease; E78.5 Hyperlipidemia, unspecified; D63.1 Anemia in chronic kidney disease; B02.9 Zoster without complications; E87.5 Hyperkalemia; E03.9 Hypothyroidism, unspecified; Z99.2 Dependence on renal dialysis; Z79.4 Long term (current) use of insulin; Z79.899 Other long term (current) drug therapy
CPT/HCPCS: 36415; 36416; 71045; 72128; 72131; 72146; 72148; 80048; 80053; 80202; 80307; 83605; 83690; 83735; 84145; 84484; 85025; 86141; 87040; 93005; 96365; 96375; J0692; J1644; J1815; J2185; J2270; J2405; J3370; J3370-JW; J3490; J7050

== ENCOUNTER 2024-01-03 08:18 | Inpatient (IN) | payer OTHER ==
[2024-01-03 09:23] LABS: %Basophils 2.2 % (0.0-1.0); %Eosinophils 3.2 % (0.0-10.0); %Lymphocytes 15.6 % (21.0-51.0); %Monocytes 6.1 % (0.0-10.0); %Neutrophils 72.7 % (42.0-75.0); Hemoglobin 13.6 g/dL (14.0-18.0); Mean Corpuscular HGB CONC 32.4 g/dL (32.0-36.0); Mean Corpuscular Hemoglobin 31.3 pg (27.0-31.0); Mean Corpuscular Volume 96.8 fL (78.0-98.0); Mean Platelet Volume 10.6 fL (7.4-10.4); Platelet Count 129 10x3/uL (130-400); RBC Distribution Width 14.8 % (11.5-14.5); Red Blood Cell (RBC) Count 4.34 mill/uL (4.70-6.10)
[2024-01-03 09:41] LABS: Acetaminophen Less than 10 mcg/mL (Less than 10); Alcohol Less than 10.0 mg/dL (Less than 10); Salicylate Less than 8.0 mg/dL (Less than 8.0)
[2024-01-03 09:45] LABS: ALT (SGPT) 31 U/L (8-55); AST (SGOT) 27 U/L (5-34); Albumin 2.7 g/dL (3.4-4.8); Alkaline Phosphatase 163 U/L (40-110); Anion Gap 19 mmol/L (10-20); BUN (Urea Nitrogen) 54 mg/dL (8.4-25.7); Bilirubin, Total 0.6 mg/dL (0.2-1.2); Calc. Creatinine Clearance 0 mL/min (70-130); Calcium 6.8 mg/dL (7.8-10.44); Carbon Dioxide 17 mmol/L (23-31); Chloride 106 mmol/L (98-107); Estimated GFR 8; Globulin 3.8 g/dL (2.4-3.5); Glucose 154 mg/dL (80-115); Potassium 4.9 mmol/L (3.5-5.1); Protein, Total 6.5 g/dL (5.8-8.1); Sodium 137 mmol/L (136-145)
[2024-01-03] MEDS ORDERED: Heparin 10,000 UNITS/ 10 ML VIAL ONE (09:49)
[2024-01-03] MEDS ORDERED: Calcium Chloride 1 GM/10 ML Abboject SYRINGE ONE (11:11)
[2024-01-03 14:06] LABS: HBSAB Concentration 405.97 mIU/mL; HBsAg Index 0.29 S/CO (0-0.99); Hep B Core Total Ab NONREACTIVE (NonReactive); Hep B Core Total Index 0.18 S/CO (0-0.79); Hep B Surf AB REACTIVE (NonReactive); Hep B Surf Ag NONREACTIVE S/CO (NonReactive); Hep C IgG Ab NONREACTIVE S/CO (NonReactive); Hep C Index 0.18 S/CO (0-0.79)
[2024-01-03] MEDS ORDERED: Glucagon 1 MG/ML KIT IM PRN (15:42)
[2024-01-03] MEDS ORDERED: Dextrose 5% in Water 1,000 ML IV PRN (15:42)
[2024-01-03 16:11] LABS: Phosphorus 5.9 mg/dL (2.3-4.7)
[2024-01-03 16:14] LABS: Phosphorus 5.8 mg/dL (2.3-4.7)
[2024-01-03 16:22] LABS: Calcium 11.3 mg/dL (7.8-10.44)
[2024-01-03 16:42] VITALS: BMI 26.9
[2024-01-03] MEDS: Gabapentin 300 MG CAP PO SCH (21:35)
[2024-01-03] MEDS: Apixaban 5 MG TAB PO SCH (21:36)
[2024-01-03] MEDS: Carvedilol 6.25 MG TAB PO SCH (21:36)
[2024-01-03] MEDS: Atorvastatin Calcium 20 MG TAB PO SCH (23:44)
[2024-01-03] MEDS: Insulin Glargine 30 UNITS/0.3 ML VIAL SC SCH (23:45)
[2024-01-04 04:17] LABS: #Basophils 0.07 10x3/uL (0.0-0.2); %Eosinophils 6.6 % (0.0-10.0); %Lymphocytes 23.1 % (21.0-51.0); %Monocytes 11.8 % (0.0-10.0); %Neutrophils 55.9 % (42.0-75.0); Hematocrit 41.5 % (42.0-52.0); Hemoglobin 14.1 g/dL (14.0-18.0); Mean Corpuscular Hemoglobin 31.1 pg (27.0-31.0); Mean Corpuscular Volume 91.4 fL (78.0-98.0); Mean Platelet Volume 11.2 fL (7.4-10.4); Platelet Count 86 10x3/uL (130-400); RBC Distribution Width 14.8 % (11.5-14.5); Red Blood Cell (RBC) Count 4.54 mill/uL (4.70-6.10)
[2024-01-04 05:43] LABS: ALT (SGPT) 22 U/L (8-55); AST (SGOT) 20 U/L (5-34); Albumin 2.2 g/dL (3.4-4.8); Alkaline Phosphatase 132 U/L (40-110); Anion Gap 18 mmol/L (10-20); BUN (Urea Nitrogen) 33 mg/dL (8.4-25.7); Bilirubin, Total 0.6 mg/dL (0.2-1.2); Calc. Creatinine Clearance 15 mL/min (70-130); Calcium 6.8 mg/dL (7.8-10.44); Carbon Dioxide 16 mmol/L (23-31); Chloride 106 mmol/L (98-107); Estimated GFR 12; Glucose 108 mg/dL (80-115); Protein, Total 5.2 g/dL (5.8-8.1); Sodium 136 mmol/L (136-145)
[2024-01-04] MEDS: Ketoconazole 2% Cream 15 gm Tube TOP SCH ×2 (10:12→10:19)
[2024-01-04] MEDS: Terbinafine 250 MG TAB PO SCH ×2 (10:12→10:20)
[2024-01-04] MEDS: Calcium Chloride 13.6 MEQ in Sodium Chloride 0.9% 100 ML IVPB SCH (10:12)
[2024-01-04] MEDS: Aspirin 81 mg Enteric Coated Tablet PO SCH (10:20)
[2024-01-04] MEDS: Sertraline 25 MG TAB PO SCH (10:20)
[2024-01-04] MEDS: Vancomycin (BATCH) 1.5 GM in Premix 1 BAG IVPB SCH (10:21)
[2024-01-04] MEDS: Levothyroxine Sodium 100 MCG TAB PO SCH (10:23)
[2024-01-04 11:52] LABS: Lactic Acid 1.63 mmol/L (0.5-2.2)
[2024-01-04 11:53] LABS: Hemoglobin A1c 9.5 % (4.0-6.0)
[2024-01-04 11:54] LABS: Magnesium 1.9 mg/dL (1.6-2.6); Phosphorus 4.5 mg/dL (2.3-4.7)
[2024-01-04] MEDS ORDERED: Vancomycin Hemodialysis Sliding Scale FS SCH (13:00)
[2024-01-04 14:51] VITALS: BMI 26.9
[2024-01-04 15:10] LABS: Acetaminophen Less than 10 mcg/mL (Less than 10); Alcohol Less than 10.0 mg/dL (Less than 10); Salicylate Less than 8.0 mg/dL (Less than 8.0)
[2024-01-04] MEDS ORDERED: Calcitriol 0.25 MCG CAP PO SCH (16:10)
[2024-01-04] MEDS: Calcitriol 0.25 MCG CAP PO SCH (17:16)
[2024-01-04] MEDS: Calcium Carbonate 500 MG ChewTAB PO SCH (17:16)
[2024-01-04] MEDS: Calcium Carbonate 500 MG ChewTAB ONE (18:38)
[2024-01-04] MEDS: Insulin Lispro 100 UNIT/ML 10 ML VIAL SC PRN (21:22)
[2024-01-05 06:06] LABS: #Basophils 0.09 10x3/uL (0.0-0.2); %Basophils 2.5 % (0.0-1.0); %Eosinophils 5.2 % (0.0-10.0); %Lymphocytes 18.3 % (21.0-51.0); %Monocytes 10.9 % (0.0-10.0); %Neutrophils 62.8 % (42.0-75.0); Hematocrit 39.7 % (42.0-52.0); Mean Corpuscular HGB CONC 32.7 g/dL (32.0-36.0); Mean Corpuscular Volume 94.7 fL (78.0-98.0); Mean Platelet Volume 11.3 fL (7.4-10.4); Platelet Count 115 10x3/uL (130-400); RBC Distribution Width 14.8 % (11.5-14.5); Red Blood Cell (RBC) Count 4.19 mill/uL (4.70-6.10)
[2024-01-05 06:32] LABS: ALT (SGPT) 21 U/L (8-55); AST (SGOT) 22 U/L (5-34); Albumin 2.1 g/dL (3.4-4.8); Alkaline Phosphatase 129 U/L (40-110); Anion Gap 15 mmol/L (10-20); BUN (Urea Nitrogen) 40 mg/dL (8.4-25.7); Bilirubin, Total 0.5 mg/dL (0.2-1.2); Calc. Creatinine Clearance 14 mL/min (70-130); Calcium 6.9 mg/dL (7.8-10.44); Carbon Dioxide 19 mmol/L (23-31); Chloride 106 mmol/L (98-107); Estimated GFR 11; Glucose 130 mg/dL (80-115); Potassium 4.1 mmol/L (3.5-5.1); Protein, Total 5.1 g/dL (5.8-8.1); Sodium 136 mmol/L (136-145)
[2024-01-05 07:43] LABS: Vancomycin, Trough 14.3 ug/mL
[2024-01-05] MEDS ORDERED: Calcium Carbonate 500 MG ChewTAB PO SCH (09:00)
[2024-01-05] MEDS ORDERED: Calcitriol 0.25 MCG CAP PO SCH (09:00)
[2024-01-05] MEDS: Calcitriol 0.25 MCG CAP PO SCH (10:02)
[2024-01-05 12:00] LABS: HIV (1/2) Antibody/Antigen NONREACTIVE (NonReactive); HIV 1/2 INDEX 0.06 S/CO (<1.00)
[2024-01-05 12:08] LABS: Vitamin B12 1158 pg/mL (211-911)
[2024-01-05] MEDS: Aripiprazole 10 MG TAB PO SCH (17:49)
[2024-01-05] MEDS: Vancomycin HCl 750 MG in Sodium Chloride 0.9% 250 ML 250 ML IVPB SCH (21:58)
[2024-01-05] MEDS: Dextrose 50% Abboject 50 ML SYRINGE SLOW IVP PRN (22:14)
[2024-01-06 04:57] LABS: #Basophils 0.04 10x3/uL (0.0-0.2); %Eosinophils 3.2 % (0.0-10.0); %Lymphocytes 12.4 % (21.0-51.0); %Monocytes 9.4 % (0.0-10.0); %Neutrophils 73.8 % (42.0-75.0); Hematocrit 43.9 % (42.0-52.0); Hemoglobin 14.3 g/dL (14.0-18.0); Mean Corpuscular HGB CONC 32.6 g/dL (32.0-36.0); Mean Platelet Volume 11.3 fL (7.4-10.4); Platelet Count 105 10x3/uL (130-400); RBC Distribution Width 14.8 % (11.5-14.5); Red Blood Cell (RBC) Count 4.62 mill/uL (4.70-6.10)
[2024-01-06 05:01] LABS: ALT (SGPT) 19 U/L (8-55); AST (SGOT) 22 U/L (5-34); Albumin 2.1 g/dL (3.4-4.8); Alkaline Phosphatase 128 U/L (40-110); Anion Gap 13 mmol/L (10-20); BUN (Urea Nitrogen) 18 mg/dL (8.4-25.7); Bilirubin, Total 0.7 mg/dL (0.2-1.2); Calc. Creatinine Clearance 21 mL/min (70-130); Carbon Dioxide 22 mmol/L (23-31); Chloride 104 mmol/L (98-107); Estimated GFR 18; Globulin 3.2 g/dL (2.4-3.5); Glucose 144 mg/dL (80-115); Magnesium 1.9 mg/dL (1.6-2.6); Potassium 4.1 mmol/L (3.5-5.1); Protein, Total 5.3 g/dL (5.8-8.1); Sodium 135 mmol/L (136-145)
[2024-01-06 05:15] LABS: Phosphorus 3.9 mg/dL (2.3-4.7)
[2024-01-06] MEDS: Aripiprazole 10 MG TAB PO SCH (08:38)
[2024-01-06 11:37] LABS: Syphilis Antibody Nonreactive (Nonreactive); Syphilis Antibody Index 0.07 S/CO (<1.00 Non-Reactive)
[2024-01-06] MEDS: Insulin Lispro 100 UNIT/ML 10 ML VIAL SC PRN (13:21)
[2024-01-07 06:12] LABS: Magnesium 1.9 mg/dL (1.6-2.6); Phosphorus 3.7 mg/dL (2.3-4.7)
[2024-01-07 06:17] LABS: ALT (SGPT) 44 U/L (8-55); AST (SGOT) 52 U/L (5-34); Albumin 2.1 g/dL (3.4-4.8); Alkaline Phosphatase 183 U/L (40-110); Anion Gap 13 mmol/L (10-20); BUN (Urea Nitrogen) 24 mg/dL (8.4-25.7); Bilirubin, Total 0.5 mg/dL (0.2-1.2); Calc. Creatinine Clearance 17 mL/min (70-130); Calcium 6.8 mg/dL (7.8-10.44); Carbon Dioxide 22 mmol/L (23-31); Chloride 105 mmol/L (98-107); Estimated GFR 15; Glucose 173 mg/dL (80-115); Potassium 3.5 mmol/L (3.5-5.1); Protein, Total 5.1 g/dL (5.8-8.1); Sodium 136 mmol/L (136-145)
[2024-01-07 06:19] LABS: #Basophils 0.05 10x3/uL (0.0-0.2); %Basophils 1.7 % (0.0-1.0); %Eosinophils 5.4 % (0.0-10.0); %Monocytes 9.5 % (0.0-10.0); %Neutrophils 62.1 % (42.0-75.0); Hematocrit 36.2 % (42.0-52.0); Hemoglobin 12.1 g/dL (14.0-18.0); Mean Corpuscular HGB CONC 33.4 g/dL (32.0-36.0); Mean Corpuscular Hemoglobin 31.6 pg (27.0-31.0); Mean Corpuscular Volume 94.5 fL (78.0-98.0); Mean Platelet Volume 11.4 fL (7.4-10.4); Platelet Count 93 10x3/uL (130-400); RBC Distribution Width 14.8 % (11.5-14.5); Red Blood Cell (RBC) Count 3.83 mill/uL (4.70-6.10)
[2024-01-07 08:10] VITALS: TEMP 97.4
[2024-01-07] MEDS: Ergocalciferol 1.25 MG(50,000 UNITS) CAP PO SCH (11:18)
[2024-01-07] MEDS: FLU (Fluarix Triv) TS24-25(6MOS UP)/PF 45 MCG/0.5 ML Syringe IM ONE (11:18)
[2024-01-07 12:11] VITALS: BP 142/92
== END 2024-01-07 17:11 | disposition home or self-care (01) | DRG 124 ==
LOC: ERS 08:18 → ERHOLD 12:51 → OBS 16:23 → OBSVTOIN 01-05 09:49
PROVIDERS: ADMIT Student in an Organized Health Care Education/Training Program; ATTEND Student in an Organized Health Care Education/Training Program
DX: R44.1 Visual hallucinations (principal); N18.6 End stage renal disease; I50.22 Chronic systolic (congestive) heart failure; I13.2 Hypertensive heart and chronic kidney disease with heart failure and with stage 5 chronic kidney disease, or end stage renal disease; E87.20 Acidosis, unspecified; N25.81 Secondary hyperparathyroidism of renal origin; K70.30 Alcoholic cirrhosis of liver without ascites; F32.A Depression, unspecified; E11.22 Type 2 diabetes mellitus with diabetic chronic kidney disease; E83.51 Hypocalcemia; D63.1 Anemia in chronic kidney disease; E88.09 Other disorders of plasma-protein metabolism, not elsewhere classified; B36.8 Other specified superficial mycoses; Z99.2 Dependence on renal dialysis; Z79.899 Other long term (current) drug therapy; Z79.4 Long term (current) use of insulin; Z79.82 Long term (current) use of aspirin; Z79.890 Hormone replacement therapy; Z98.890 Other specified postprocedural states
CPT/HCPCS: 36415; 36416; 70450; 80053; 80202; 80307; 82140; 82306; 82607; 83036; 83605; 83735; 83930; 83970; 84100; 84425; 84443; 85025; 86704; 86706; 86780; 86803; 87040; 87340; 87389; 96374; 97139; G0378; J1611; J1644; J1815; J3370; J7050; J7999

== ENCOUNTER 2024-02-21 17:33 | Inpatient (IN) | payer OTHER ==
[2024-02-21 18:10] LABS: Hematocrit 30.9 % (42.0-52.0); Mean Corpuscular HGB CONC 32.4 g/dL (32.0-36.0); Mean Corpuscular Hemoglobin 32.7 pg (27.0-31.0); Mean Platelet Volume 11.6 fL (7.4-10.4); Platelet Count 73 10x3/uL (130-400); Red Blood Cell (RBC) Count 3.06 mill/uL (4.70-6.10)
[2024-02-21 18:19] LABS: ALT (SGPT) 62 U/L (8-55); AST (SGOT) 70 U/L (5-34); Albumin 2.3 g/dL (3.4-4.8); Alkaline Phosphatase 119 U/L (40-110); Anion Gap 15 mmol/L (10-20); BUN (Urea Nitrogen) 49 mg/dL (8.4-25.7); Bilirubin, Total 0.4 mg/dL (0.2-1.2); Calc. Creatinine Clearance 0 mL/min (70-130); Calcium 7.3 mg/dL (7.8-10.44); Carbon Dioxide 15 mmol/L (23-31); Chloride 113 mmol/L (98-107); Estimated GFR 9; Globulin 3.1 g/dL (2.4-3.5); Glucose 127 mg/dL (80-115); Potassium 5.3 mmol/L (3.5-5.1); Protein, Total 5.4 g/dL (5.8-8.1); Sodium 138 mmol/L (136-145)
[2024-02-21 18:46] LABS: Troponin I 0.061 ng/mL (< 0.028)
[2024-02-21 18:56] LABS: Anisocytosis MODERATE=16-30 cells HPF (0-5); Band 7 % (5-11); Basophilic Stippling SLIGHT = 1-2 cells HPF (None Seen); Burr Cells MODERATE= 6-15 cells HPF (0-1); Eosinophils 5 % (0-10); Lymphocytes 9 % (21-51); Macrocytosis SLIGHT = 6-15 cells HPF (0-5); Monocytes 5 % (0-10); Neutrophil 73 % (42-75); Nucleated RBC (Manual Ct) 1 % (0); Ovalocytes SLIGHT = 2-5 cells HPF (0-1); Platelet Adequacy Comment Platelets Decreased; Poikilocytosis SLIGHT = 6-15 cells HPF (0-5); Polychromasia SLIGHT = 2-3 cells HPF (0-2); Tear Drops SLIGHT = 2-5 cells HPF (0-1)
[2024-02-21 19:35] LABS: Reflex for Review?? YES
[2024-02-21] MEDS ORDERED: Morphine 2 MG/ML VIAL ONE (19:56)
[2024-02-21] MEDS: Acetaminophen 325 MG TAB PO PRN (23:13)
[2024-02-22 03:08] VITALS: BMI 25.5
[2024-02-22] MEDS ORDERED: Morphine 2 MG/ML VIAL SLOW IVP SCH (03:15)
[2024-02-22] MEDS: fentaNYL 50 mcg/mL 1 mL Vial SLOW IVP SCH (03:25)
[2024-02-22] MEDS: Levothyroxine Sodium 100 MCG TAB PO SCH (06:00)
[2024-02-22 06:01] LABS: Hematocrit 31.2 % (42.0-52.0); Hemoglobin 10.1 g/dL (14.0-18.0); Mean Corpuscular HGB CONC 32.4 g/dL (32.0-36.0); Mean Corpuscular Hemoglobin 32.2 pg (27.0-31.0); Mean Corpuscular Volume 99.4 fL (78.0-98.0); Platelet Count 68 10x3/uL (130-400); RBC Distribution Width 17.7 % (11.5-14.5); Red Blood Cell (RBC) Count 3.14 mill/uL (4.70-6.10)
[2024-02-22 06:26] LABS: ALT (SGPT) 76 U/L (8-55); AST (SGOT) 86 U/L (5-34); Albumin 2.2 g/dL (3.4-4.8); Alkaline Phosphatase 107 U/L (40-110); Anion Gap 13 mmol/L (10-20); BUN (Urea Nitrogen) 28 mg/dL (8.4-25.7); Bilirubin, Total 0.4 mg/dL (0.2-1.2); Calc. Creatinine Clearance 14 mL/min (70-130); Calcium 7.4 mg/dL (7.8-10.44); Carbon Dioxide 20 mmol/L (23-31); Chloride 109 mmol/L (98-107); Estimated GFR 12; Globulin 3.3 g/dL (2.4-3.5); Glucose 171 mg/dL (80-115); Potassium 4.3 mmol/L (3.5-5.1); Protein, Total 5.5 g/dL (5.8-8.1); Sodium 138 mmol/L (136-145)
[2024-02-22 06:31] LABS: Hemoglobin A1c 7.3 % (4.0-6.0)
[2024-02-22 06:51] LABS: Anisocytosis SLIGHT = 6-15 cells HPF (0-5); Band 4 % (5-11); Eosinophils 3 % (0-10); Hypochromia SLIGHT = 6-15 cells HPF (0-5); Lymphocytes 12 % (21-51); Monocytes 9 % (0-10); Neutrophil 72 % (42-75); Nucleated RBC (Manual Ct) 2 % (0); Platelet Adequacy Comment Platelets Decreased; Polychromasia SLIGHT = 2-3 cells HPF (0-2)
[2024-02-22] MEDS: Dapagliflozin Propanediol 10 MG TAB PO SCH (08:58)
[2024-02-22] MEDS: Losartan 25 MG TAB PO SCH (08:59)
[2024-02-22] MEDS: risperiDONE 1 MG TAB PO SCH (08:59)
[2024-02-22] MEDS: Apixaban 5 MG TAB PO SCH (09:00)
[2024-02-22] MEDS: Sertraline 100 MG TAB PO SCH (09:00)
[2024-02-22] MEDS ORDERED: Heparin 5,000 UNITS/ML VIAL SC SCH (09:00)
[2024-02-22] MEDS: Carvedilol 25 MG TAB PO SCH (09:00)
[2024-02-22] MEDS ORDERED: Glucagon 1 MG/ML KIT IM PRN (09:44)
[2024-02-22] MEDS ORDERED: Dextrose 5% in Water 1,000 ML IV PRN (09:44)
[2024-02-22] MEDS: MULTIVIT/IRON SULF/FOLIC ACID 1 EACH TAB PO SCH (10:04)
[2024-02-22 12:02] LABS: INR-International Normal Ratio 1.5; Prothrombin Time 18.1 sec (12.0-14.7)
[2024-02-22 12:04] LABS: PTT 42.7 sec (22.9-36.1)
[2024-02-22] MEDS: HYDROcodone/Acetaminophen 5/325 mg Tablet PO SCH (13:20)
[2024-02-22] MEDS: Insulin Lispro 100 UNIT/ML 10 ML VIAL SC PRN (17:18)
[2024-02-22] MEDS: Dextrose 50% Abboject 50 ML SYRINGE SLOW IVP PRN (20:19)
[2024-02-22] MEDS: Atorvastatin Calcium 20 MG TAB PO SCH (20:24)
[2024-02-22] MEDS ORDERED: Gabapentin 300 MG CAP PO SCH (21:00)
[2024-02-23 04:21] LABS: Hematocrit 30.7 % (42.0-52.0); Hemoglobin 9.9 g/dL (14.0-18.0); Mean Corpuscular HGB CONC 32.2 g/dL (32.0-36.0); Mean Corpuscular Hemoglobin 32.8 pg (27.0-31.0); Mean Corpuscular Volume 101.7 fL (78.0-98.0); Mean Platelet Volume 11.8 fL (7.4-10.4); Platelet Count 69 10x3/uL (130-400); RBC Distribution Width 17.9 % (11.5-14.5); Red Blood Cell (RBC) Count 3.02 mill/uL (4.70-6.10)
[2024-02-23 04:45] LABS: ALT (SGPT) 75 U/L (8-55); AST (SGOT) 75 U/L (5-34); Albumin 2.2 g/dL (3.4-4.8); Alkaline Phosphatase 105 U/L (40-110); Anion Gap 15 mmol/L (10-20); BUN (Urea Nitrogen) 35 mg/dL (8.4-25.7); Bilirubin, Total 0.4 mg/dL (0.2-1.2); Calc. Creatinine Clearance 12 mL/min (70-130); Calcium 7.1 mg/dL (7.8-10.44); Carbon Dioxide 18 mmol/L (23-31); Chloride 108 mmol/L (98-107); Estimated GFR 10; Globulin 3.4 g/dL (2.4-3.5); Glucose 38 mg/dL (80-115); Potassium 5.1 mmol/L (3.5-5.1); Protein, Total 5.6 g/dL (5.8-8.1); Sodium 136 mmol/L (136-145)
[2024-02-23 04:54] LABS: Anisocytosis SLIGHT = 6-15 cells HPF (0-5); Band 29 % (5-11); Hypochromia SLIGHT = 6-15 cells HPF (0-5); Large Platelets 2.5 % (0-5); Lymphocytes 5 % (21-51); Macrocytosis SLIGHT = 6-15 cells HPF (0-5); Monocytes 10 % (0-10); Neutrophil 54 % (42-75); Nucleated RBC (Manual Ct) 1 % (0); Platelet Adequacy Comment Platelets Decreased; Polychromasia SLIGHT = 2-3 cells HPF (0-2); Reactive Lymphocytes 1 % (0-10)
[2024-02-23] MEDS ORDERED: Benzonatate 100 MG CAP PO PRN (08:58)
[2024-02-23] MEDS: guaiFENesin 200 MG TAB PO PRN (20:51)
[2024-02-23] MEDS ORDERED: Ipratropium/Albuterol 3 ML NEB NEB PRN (22:49)
[2024-02-23] MEDS: Ipratropium/Albuterol 3 ML NEB NEB SCH (23:04)
[2024-02-23 23:43] VITALS: BMI 25.0
[2024-02-23] MEDS: cefTRIAXone\\ROCEPHIN 1 GM in Sodium Chloride 0.9% 100 ML IVPB SCH (23:52)
[2024-02-24] MEDS: Benzonatate 100 MG CAP PO SCH ×2 (00:21→10:25)
[2024-02-24] MEDS: Ipratropium/Albuterol 3 ML NEB NEB SCH (01:17)
[2024-02-24] MEDS ORDERED: Piperacillin/Tazobactam 4.5 GM in Sodium Chloride 0.9% 100 ML IVPB SCH (01:45)
[2024-02-24] MEDS ORDERED: Piperacillin/Tazobactam 2.25 GM in Sodium Chloride 0.9% 100 ML IVPB SCH (01:53)
[2024-02-24] MEDS ORDERED: Piperacillin/Tazobactam 3.375 GM in Sodium Chloride 0.9% 100 ML IVPB SCH ×2 (02:00→06:00)
[2024-02-24] MEDS: Piperacillin/Tazobactam 3.375 GM in Sodium Chloride 0.9% 100 ML IVPB SCH ×2 (02:12→06:06)
[2024-02-24] MEDS: Azithromycin 500 MG in Sodium Chloride 0.9% 250 ML 250 ML IVPB SCH (03:22)
[2024-02-24 04:09] LABS: #Basophils Less than 0.03 10x3/uL (0.0-0.2); #Eosinophils Less than 0.03 10x3/uL (0.0-0.7); %Basophils 0.5 % (0.0-1.0); %Lymphocytes 5.3 % (21.0-51.0); %Monocytes 10.3 % (0.0-10.0); %Neutrophils 83.2 % (42.0-75.0); Hematocrit 28.3 % (42.0-52.0); Mean Corpuscular HGB CONC 31.8 g/dL (32.0-36.0); Mean Corpuscular Hemoglobin 32.3 pg (27.0-31.0); Mean Corpuscular Volume 101.4 fL (78.0-98.0); Mean Platelet Volume 11.5 fL (7.4-10.4); Platelet Count 60 10x3/uL (130-400); RBC Distribution Width 17.9 % (11.5-14.5); Red Blood Cell (RBC) Count 2.79 mill/uL (4.70-6.10)
[2024-02-24 04:43] LABS: ALT (SGPT) 59 U/L (8-55); AST (SGOT) 50 U/L (5-34); Albumin 2.1 g/dL (3.4-4.8); Alkaline Phosphatase 99 U/L (40-110); Anion Gap 11 mmol/L (10-20); BUN (Urea Nitrogen) 21 mg/dL (8.4-25.7); Bilirubin, Total 0.3 mg/dL (0.2-1.2); Calc. Creatinine Clearance 18 mL/min (70-130); Calcium 7.1 mg/dL (7.8-10.44); Carbon Dioxide 22 mmol/L (23-31); Chloride 106 mmol/L (98-107); Estimated GFR 17; Globulin 3.2 g/dL (2.4-3.5); Glucose 153 mg/dL (80-115); Potassium 4.2 mmol/L (3.5-5.1); Protein, Total 5.3 g/dL (5.8-8.1); Sodium 135 mmol/L (136-145)
[2024-02-24] MEDS ORDERED: Azithromycin 250 MG TAB PO SCH (09:00)
[2024-02-24] MEDS: predniSONE 20 MG TAB PO SCH (15:02)
[2024-02-24] MEDS: Amoxicillin/Potassium Clav 500 MG TAB PO SCH (22:27)
[2024-02-25] MEDS: Azithromycin 500 MG in Sodium Chloride 0.9% 250 ML 250 ML IVPB SCH (01:47)
[2024-02-25] MEDS: Acetaminophen 325 MG TAB PO SCH (02:42)
[2024-02-25] MEDS: Melatonin 3 MG TAB PO SCH (02:42)
[2024-02-25] MEDS: Piperacillin/Tazobactam 3.375 GM in Sodium Chloride 0.9% 100 ML IVPB SCH (02:42)
[2024-02-25 04:23] LABS: #Basophils Less than 0.03 10x3/uL (0.0-0.2); #Eosinophils Less than 0.03 10x3/uL (0.0-0.7); %Lymphocytes 7.5 % (21.0-51.0); %Monocytes 1.6 % (0.0-10.0); %Neutrophils 90.5 % (42.0-75.0); Hematocrit 31.7 % (42.0-52.0); Mean Corpuscular HGB CONC 31.5 g/dL (32.0-36.0); Mean Corpuscular Hemoglobin 32.1 pg (27.0-31.0); Mean Corpuscular Volume 101.6 fL (78.0-98.0); Mean Platelet Volume 10.7 fL (7.4-10.4); Platelet Count 56 10x3/uL (130-400); RBC Distribution Width 18.1 % (11.5-14.5); Red Blood Cell (RBC) Count 3.12 mill/uL (4.70-6.10)
[2024-02-25 06:33] LABS: ALT (SGPT) 52 U/L (8-55); AST (SGOT) 38 U/L (5-34); Albumin 2.2 g/dL (3.4-4.8); Alkaline Phosphatase 97 U/L (40-110); Anion Gap 18 mmol/L (10-20); BUN (Urea Nitrogen) 32 mg/dL (8.4-25.7); Bilirubin, Total 0.4 mg/dL (0.2-1.2); Calc. Creatinine Clearance 14 mL/min (70-130); Calcium 7.3 mg/dL (7.8-10.44); Carbon Dioxide 18 mmol/L (23-31); Chloride 107 mmol/L (98-107); Estimated GFR 13; Globulin 3.5 g/dL (2.4-3.5); Glucose 148 mg/dL (80-115); Potassium 4.7 mmol/L (3.5-5.1); Protein, Total 5.7 g/dL (5.8-8.1); Sodium 138 mmol/L (136-145)
[2024-02-25] MEDS ORDERED: Azithromycin 250 MG TAB PO SCH (09:00)
[2024-02-25] MEDS: predniSONE 20 MG TAB PO SCH (09:51)
[2024-02-25] MEDS: Ondansetron PF 4 MG/2 ML Vial IVP PRN (10:21)
[2024-02-25] MEDS ORDERED: Heparin 10,000 UNITS/ 10 ML VIAL ONE (10:24)
[2024-02-25 11:17] LABS: Actual Bicarbonate (HCO3a) 20.6 mEq/L (22-28); Base Excess (BEa) -5.8 mEq/L (-2.0 to +3.0); CO2 Tension 44.5 mmHg (35.0-45.0); Calcium, Ionized (arterial) 1.08 mmol/L (1.12-1.30); Carboxyhemoglobin (COHb) 0.7 gm% (0.0-3.0); Hematocrit-ABG 33 % (42.0-52.0); Hemoglobin (Hb) 11.1 g/dL (14.0-18.0); pH, Arterial 7.284 (7.35-7.45)
[2024-02-25 11:22] LABS: O2 Tension (PaO2), arterial 57.6 mmHg (> 80.0); Puncture Site Right Radial artery
[2024-02-25 11:23] LABS: ALV-art Gradient 86.415 mmHg (0-20)
[2024-02-25 12:01] LABS: #Basophils Less than 0.03 10x3/uL (0.0-0.2); #Eosinophils Less than 0.03 10x3/uL (0.0-0.7); %Basophils 0.2 % (0.0-1.0); %Lymphocytes 7.1 % (21.0-51.0); %Monocytes 3.4 % (0.0-10.0); %Neutrophils 89.1 % (42.0-75.0); Hematocrit 32.8 % (42.0-52.0); Hemoglobin 10.3 g/dL (14.0-18.0); Mean Corpuscular HGB CONC 31.4 g/dL (32.0-36.0); Mean Corpuscular Hemoglobin 33.1 pg (27.0-31.0); Mean Corpuscular Volume 105.5 fL (78.0-98.0); Mean Platelet Volume 11.7 fL (7.4-10.4); Platelet Count 71 10x3/uL (130-400); RBC Distribution Width 18.5 % (11.5-14.5); Red Blood Cell (RBC) Count 3.11 mill/uL (4.70-6.10)
[2024-02-25 12:11] LABS: ALT (SGPT) 47 U/L (8-55); AST (SGOT) 32 U/L (5-34); Alkaline Phosphatase 93 U/L (40-110); Anion Gap 15 mmol/L (10-20); BUN (Urea Nitrogen) 34 mg/dL (8.4-25.7); Bilirubin, Total 0.4 mg/dL (0.2-1.2); Calc. Creatinine Clearance 13 mL/min (70-130); Calcium 7.2 mg/dL (7.8-10.44); Carbon Dioxide 20 mmol/L (23-31); Chloride 107 mmol/L (98-107); Estimated GFR 12; Globulin 3.4 g/dL (2.4-3.5); Glucose 169 mg/dL (80-115); Potassium 4.7 mmol/L (3.5-5.1); Protein, Total 5.4 g/dL (5.8-8.1); Sodium 137 mmol/L (136-145)
[2024-02-25 12:16] LABS: Troponin I 0.034 ng/mL (< 0.028)
[2024-02-25 12:24] LABS: Anisocytosis SLIGHT = 6-15 cells HPF (0-5); Hypochromia SLIGHT = 6-15 cells HPF (0-5); Macrocytosis SLIGHT = 6-15 cells HPF (0-5); Ovalocytes SLIGHT = 2-5 cells HPF (0-1); Platelet Adequacy Comment Platelets Decreased; Poikilocytosis SLIGHT = 6-15 cells HPF (0-5); Polychromasia SLIGHT = 2-3 cells HPF (0-2); Tear Drops SLIGHT = 2-5 cells HPF (0-1)
[2024-02-26 06:04] LABS: #Basophils Less than 0.03 10x3/uL (0.0-0.2); #Eosinophils Less than 0.03 10x3/uL (0.0-0.7); %Lymphocytes 7.2 % (21.0-51.0); %Monocytes 4.5 % (0.0-10.0); %Neutrophils 88.1 % (42.0-75.0); Hemoglobin 8.9 g/dL (14.0-18.0); Mean Corpuscular HGB CONC 31.8 g/dL (32.0-36.0); Mean Corpuscular Volume 100.7 fL (78.0-98.0); Mean Platelet Volume 10.5 fL (7.4-10.4); Platelet Count 76 10x3/uL (130-400); RBC Distribution Width 18.2 % (11.5-14.5); Red Blood Cell (RBC) Count 2.78 mill/uL (4.70-6.10)
[2024-02-26 07:49] LABS: ALT (SGPT) 39 U/L (8-55); AST (SGOT) 26 U/L (5-34); Albumin 1.9 g/dL (3.4-4.8); Alkaline Phosphatase 96 U/L (40-110); Anion Gap 12 mmol/L (10-20); BUN (Urea Nitrogen) 28 mg/dL (8.4-25.7); Bilirubin, Total 0.3 mg/dL (0.2-1.2); Calc. Creatinine Clearance 18 mL/min (70-130); Calcium 7.2 mg/dL (7.8-10.44); Carbon Dioxide 24 mmol/L (23-31); Chloride 105 mmol/L (98-107); Estimated GFR 18; Globulin 3.1 g/dL (2.4-3.5); Glucose 271 mg/dL (80-115); Potassium 4.6 mmol/L (3.5-5.1); Sodium 136 mmol/L (136-145)
[2024-02-26] MEDS: Apixaban 2.5 MG TAB PO SCH (09:58)
[2024-02-26] MEDS: Insulin Lispro 100 UNIT/ML 10 ML VIAL SC SCH (18:12)
[2024-02-26] MEDS: Carvedilol 6.25 MG TAB PO SCH (21:02)
[2024-02-27] MEDS: Insulin Lispro 100 UNIT/ML 10 ML VIAL SC PRN (00:46)
[2024-02-27] MEDS: Insulin Lispro 100 UNIT/ML 10 ML VIAL SC SCH (00:47)
[2024-02-27] MEDS: Acetaminophen 325 MG TAB PO PRN (01:16)
[2024-02-27 06:34] LABS: #Basophils Less than 0.03 10x3/uL (0.0-0.2); #Eosinophils Less than 0.03 10x3/uL (0.0-0.7); %Monocytes 6.3 % (0.0-10.0); %Neutrophils 85.5 % (42.0-75.0); Hematocrit 28.4 % (42.0-52.0); Hemoglobin 9.1 g/dL (14.0-18.0); Mean Corpuscular Hemoglobin 32.5 pg (27.0-31.0); Mean Corpuscular Volume 101.4 fL (78.0-98.0); Platelet Count 83 10x3/uL (130-400); RBC Distribution Width 17.6 % (11.5-14.5)
[2024-02-27 06:45] LABS: ALT (SGPT) 34 U/L (8-55); AST (SGOT) 20 U/L (5-34); Alkaline Phosphatase 96 U/L (40-110); Anion Gap 14 mmol/L (10-20); BUN (Urea Nitrogen) 43 mg/dL (8.4-25.7); Bilirubin, Total 0.3 mg/dL (0.2-1.2); Calc. Creatinine Clearance 15 mL/min (70-130); Calcium 7.3 mg/dL (7.8-10.44); Carbon Dioxide 21 mmol/L (23-31); Chloride 105 mmol/L (98-107); Estimated GFR 13; Globulin 3.3 g/dL (2.4-3.5); Glucose 277 mg/dL (80-115); Protein, Total 5.3 g/dL (5.8-8.1); Sodium 135 mmol/L (136-145)
[2024-02-27] MEDS ORDERED: Insulin Glargine 30 UNITS/0.3 ML VIAL SC SCH (06:45)
[2024-02-27] MEDS: Ipratropium/Albuterol 3 ML NEB NEB SCH (07:17)
[2024-02-27] MEDS ORDERED: Heparin 10,000 UNITS/ 10 ML VIAL ONE (10:29)
[2024-02-27] MEDS: EPOETIN ALFA-EPBX (ESRD) 10,000 UNITS/ML VIAL SC SCH (17:23)
[2024-02-27] MEDS ORDERED: Loperamide HCl 2 MG CAP PO PRN (23:05)
[2024-02-28] MEDS: Diphenoxylate HCl/Atropine Tablet PO SCH (00:35)
[2024-02-28 03:25] LABS: #Basophils Less than 0.03 10x3/uL (0.0-0.2); #Eosinophils Less than 0.03 10x3/uL (0.0-0.7); %Lymphocytes 4.8 % (21.0-51.0); %Monocytes 4.4 % (0.0-10.0); %Neutrophils 90.4 % (42.0-75.0); Hematocrit 31.6 % (42.0-52.0); Hemoglobin 10.2 g/dL (14.0-18.0); Mean Corpuscular HGB CONC 32.3 g/dL (32.0-36.0); Mean Corpuscular Hemoglobin 32.7 pg (27.0-31.0); Mean Corpuscular Volume 101.3 fL (78.0-98.0); Mean Platelet Volume 10.6 fL (7.4-10.4); Platelet Count 85 10x3/uL (130-400); RBC Distribution Width 17.3 % (11.5-14.5); Red Blood Cell (RBC) Count 3.12 mill/uL (4.70-6.10)
[2024-02-28 04:07] LABS: ALT (SGPT) 38 U/L (8-55); AST (SGOT) 25 U/L (5-34); Alkaline Phosphatase 120 U/L (40-110); Anion Gap 14 mmol/L (10-20); BUN (Urea Nitrogen) 34 mg/dL (8.4-25.7); Bilirubin, Total 0.4 mg/dL (0.2-1.2); Calc. Creatinine Clearance 20 mL/min (70-130); Calcium 7.2 mg/dL (7.8-10.44); Carbon Dioxide 21 mmol/L (23-31); Chloride 104 mmol/L (98-107); Estimated GFR 18; Globulin 3.4 g/dL (2.4-3.5); Glucose 401 mg/dL (80-115); Potassium 4.7 mmol/L (3.5-5.1); Protein, Total 5.4 g/dL (5.8-8.1); Sodium 134 mmol/L (136-145)
[2024-02-28] MEDS: Saccharomyces boulardii 250 MG CAP PO SCH (09:37)
[2024-02-29 05:03] LABS: #Basophils Less than 0.03 10x3/uL (0.0-0.2); %Eosinophils 0.9 % (0.0-10.0); %Monocytes 5.9 % (0.0-10.0); %Neutrophils 83.5 % (42.0-75.0); Hematocrit 32.6 % (42.0-52.0); Hemoglobin 10.6 g/dL (14.0-18.0); Mean Corpuscular HGB CONC 32.5 g/dL (32.0-36.0); Mean Corpuscular Hemoglobin 32.5 pg (27.0-31.0); Mean Platelet Volume 10.3 fL (7.4-10.4); Platelet Count 74 10x3/uL (130-400); RBC Distribution Width 16.8 % (11.5-14.5); Red Blood Cell (RBC) Count 3.26 mill/uL (4.70-6.10)
[2024-02-29 05:28] LABS: ALT (SGPT) 33 U/L (8-55); AST (SGOT) 23 U/L (5-34); Albumin 1.9 g/dL (3.4-4.8); Alkaline Phosphatase 134 U/L (40-110); Anion Gap 13 mmol/L (10-20); BUN (Urea Nitrogen) 46 mg/dL (8.4-25.7); Bilirubin, Total 0.3 mg/dL (0.2-1.2); Calc. Creatinine Clearance 16 mL/min (70-130); Calcium 6.7 mg/dL (7.8-10.44); Carbon Dioxide 20 mmol/L (23-31); Chloride 100 mmol/L (98-107); Estimated GFR 15; Globulin 3.2 g/dL (2.4-3.5); Glucose 592 mg/dL (80-115); Potassium 5.2 mmol/L (3.5-5.1); Protein, Total 5.1 g/dL (5.8-8.1); Sodium 128 mmol/L (136-145)
[2024-02-29] MEDS ORDERED: Glucagon 1 MG/ML KIT IM PRN (06:12)
[2024-02-29] MEDS ORDERED: Dextrose 50% Abboject 50 ML SYRINGE SLOW IVP PRN (06:12)
[2024-02-29] MEDS ORDERED: Dextrose 5% in Water 1,000 ML IV PRN (06:12)
[2024-02-29] MEDS: Insulin Lispro 100 UNIT/ML 10 ML VIAL SC PRN (06:41)
[2024-02-29] MEDS: Insulin Lispro 100 UNIT/ML 10 ML VIAL SC SCH ×4 (09:52→20:54)
[2024-02-29] MEDS ORDERED: Heparin 10,000 UNITS/ 10 ML VIAL ONE (10:39)
[2024-02-29 12:49] LABS: Anion Gap 12 mmol/L (10-20); BUN (Urea Nitrogen) 20 mg/dL (8.4-25.7); Calc. Creatinine Clearance 32 mL/min (70-130); Calcium 7.2 mg/dL (7.8-10.44); Carbon Dioxide 24 mmol/L (23-31); Chloride 101 mmol/L (98-107); Estimated GFR 31; Glucose 336 mg/dL (80-115); Potassium 3.8 mmol/L (3.5-5.1); Sodium 133 mmol/L (136-145)
[2024-02-29] MEDS: OLANZapine 5 MG TAB PO SCH (20:47)
[2024-03-01 06:17] LABS: ALT (SGPT) 39 U/L (8-55); AST (SGOT) 28 U/L (5-34); Alkaline Phosphatase 164 U/L (40-110); Anion Gap 13 mmol/L (10-20); BUN (Urea Nitrogen) 31 mg/dL (8.4-25.7); Bilirubin, Total 0.4 mg/dL (0.2-1.2); Calc. Creatinine Clearance 21 mL/min (70-130); Calcium 6.9 mg/dL (7.8-10.44); Carbon Dioxide 22 mmol/L (23-31); Chloride 103 mmol/L (98-107); Estimated GFR 19; Globulin 3.3 g/dL (2.4-3.5); Glucose 241 mg/dL (80-115); Potassium 4.4 mmol/L (3.5-5.1); Protein, Total 5.3 g/dL (5.8-8.1); Sodium 134 mmol/L (136-145)
[2024-03-01 06:30] LABS: #Basophils Less than 0.03 10x3/uL (0.0-0.2); %Basophils 0.2 % (0.0-1.0); %Eosinophils 3.3 % (0.0-10.0); %Lymphocytes 12.2 % (21.0-51.0); %Neutrophils 75.6 % (42.0-75.0); Hemoglobin 10.2 g/dL (14.0-18.0); Mean Corpuscular HGB CONC 32.9 g/dL (32.0-36.0); Mean Corpuscular Hemoglobin 32.1 pg (27.0-31.0); Mean Corpuscular Volume 97.5 fL (78.0-98.0); Mean Platelet Volume 10.7 fL (7.4-10.4); Platelet Count 87 10x3/uL (130-400); RBC Distribution Width 16.3 % (11.5-14.5); Red Blood Cell (RBC) Count 3.18 mill/uL (4.70-6.10)
[2024-03-01] MEDS: Losartan 25 MG TAB PO SCH (06:32)
[2024-03-01] MEDS: Saxagliptin 2.5 MG TAB PO SCH (08:10)
[2024-03-01] MEDS ORDERED: HumaLOG 300 UNITS/3 ML VIAL SC SCH (08:30)
[2024-03-01] MEDS ORDERED: OLANZapine 5 MG TAB PO SCH (09:00)
[2024-03-01] MEDS: Insulin Lispro 100 UNIT/ML 10 ML VIAL SC SCH (10:28)
[2024-03-01] MEDS: Ipratropium/Albuterol 3 ML NEB NEB PRN (13:49)
[2024-03-01] MEDS: Amoxicillin/Potassium Clav 500 MG TAB PO SCH (20:36)
[2024-03-02] MEDS: Insulin Lispro 100 UNIT/ML 10 ML VIAL SC PRN (00:14)
[2024-03-02 05:22] LABS: #Basophils Less than 0.03 10x3/uL (0.0-0.2); %Basophils 0.3 % (0.0-1.0); %Eosinophils 3.1 % (0.0-10.0); %Lymphocytes 10.2 % (21.0-51.0); %Neutrophils 77.9 % (42.0-75.0); Hematocrit 31.6 % (42.0-52.0); Hemoglobin 10.5 g/dL (14.0-18.0); Mean Corpuscular HGB CONC 33.2 g/dL (32.0-36.0); Mean Corpuscular Hemoglobin 32.6 pg (27.0-31.0); Mean Corpuscular Volume 98.1 fL (78.0-98.0); Mean Platelet Volume 10.6 fL (7.4-10.4); Platelet Count 106 10x3/uL (130-400); RBC Distribution Width 16.8 % (11.5-14.5); Red Blood Cell (RBC) Count 3.22 mill/uL (4.70-6.10)
[2024-03-02 06:16] LABS: ALT (SGPT) 37 U/L (8-55); AST (SGOT) 27 U/L (5-34); Alkaline Phosphatase 165 U/L (40-110); Anion Gap 13 mmol/L (10-20); BUN (Urea Nitrogen) 41 mg/dL (8.4-25.7); Bilirubin, Total 0.4 mg/dL (0.2-1.2); Calc. Creatinine Clearance 19 mL/min (70-130); Calcium 6.9 mg/dL (7.8-10.44); Carbon Dioxide 20 mmol/L (23-31); Chloride 107 mmol/L (98-107); Estimated GFR 15; Globulin 3.6 g/dL (2.4-3.5); Glucose 257 mg/dL (80-115); Protein, Total 5.6 g/dL (5.8-8.1); Sodium 135 mmol/L (136-145)
[2024-03-02] MEDS: Losartan 25 MG TAB PO SCH (09:07)
[2024-03-02 11:33] VITALS: TEMP 97.7
[2024-03-02 11:54] VITALS: BP 160/94
== END 2024-03-02 15:45 | disposition home or self-care (01) | DRG 291 ==
LOC: SUATTDRO 17:33 → ERS 17:33 → 2NO 21:48 → OBSVTOIN 02-22 15:41 → IMCU/EMU 02-25 12:14 → 2NO 02-29 00:40
PROVIDERS: ADMIT Emergency Medicine; ATTEND Emergency Medicine
DX: I13.2 Hypertensive heart and chronic kidney disease with heart failure and with stage 5 chronic kidney disease, or end stage renal disease (principal); G93.41 Metabolic encephalopathy; N18.6 End stage renal disease; I50.23 Acute on chronic systolic (congestive) heart failure; N25.81 Secondary hyperparathyroidism of renal origin; D61.818 Other pancytopenia; E03.9 Hypothyroidism, unspecified; E11.22 Type 2 diabetes mellitus with diabetic chronic kidney disease; R74.01 Elevation of levels of liver transaminase levels; D72.819 Decreased white blood cell count, unspecified; D53.9 Nutritional anemia, unspecified; R60.0 Localized edema; R53.81 Other malaise; S80.211A Abrasion, right knee, initial encounter; K21.9 Gastro-esophageal reflux disease without esophagitis; E11.649 Type 2 diabetes mellitus with hypoglycemia without coma; W19.XXXA Unspecified fall, initial encounter; E11.65 Type 2 diabetes mellitus with hyperglycemia; J20.9 Acute bronchitis, unspecified; T68.XXXA Hypothermia, initial encounter; R44.1 Visual hallucinations; Z79.890 Hormone replacement therapy; Z79.82 Long term (current) use of aspirin; Z79.4 Long term (current) use of insulin; Z91.158 Patient's noncompliance with renal dialysis for other reason; Z79.899 Other long term (current) drug therapy
CPT/HCPCS: 36415; 36416; 36600; 71045; 71046; 80053; 82140; 82533; 82805; 83036; 83605; 83880; 84145; 84443; 84484; 85025; 85060; 85610; 85730; 87040; 87081; 87428; 90935; 93005; 94640; 94760; 96374; 96375; 97139; G0257; G0378; J0456; J0696; J1644; J1815; J2272; J2405; J2543; J3010; J7050; J7512; J7620; J7999; Q5105

== ENCOUNTER 2024-09-28 10:25 | Inpatient (IN) | payer OTHER ==
[~2024-09-28 10:25] MED LIST: Iopamidol 370 76% 100 ML VIAL ONE
[2024-09-28 11:35] LABS: #Basophils 0.05 10x3/uL (0.0-0.2); #Eosinophils 0.28 10x3/uL (0.0-0.7); #Monocytes 0.39 10x3/uL (0.11-0.59); #Neutrophils 2.55 10x3/uL (1.40-6.50); %Basophils 1.2 % (0.0-1.0); %Eosinophils 7.0 % (0.0-10.0); %Lymphocytes 18.4 % (21.0-51.0); %Monocytes 9.7 % (0.0-10.0); %Neutrophils 63.5 % (42.0-75.0); Hematocrit 31.3 % (42.0-52.0); Hemoglobin 9.9 g/dL (14.0-18.0); Mean Corpuscular Hemoglobin 31.1 pg (27.0-31.0); Mean Corpuscular Volume 98.4 fL (78.0-98.0); Platelet Count 137 10x3/uL (130-400); Red Blood Cell (RBC) Count 3.18 mill/uL (4.70-6.10); White Blood Cell (WBC) Count 4.02 10x3/uL (4.8-10.8)
[2024-09-28 11:52] LABS: INR-International Normal Ratio 1.1; Prothrombin Time 14.4 sec (12.0-14.7)
[2024-09-28 11:53] LABS: PTT 32.6 sec (22.9-36.1)
[2024-09-28 12:05] LABS: Troponin I 0.041 ng/mL (< 0.028)
[2024-09-28 12:06] LABS: ALT (SGPT) 20 U/L (Less than 45); AST (SGOT) 33 U/L (11-34); Albumin 2.9 g/dL (3.1-4.5); Alkaline Phosphatase 211 U/L (40-110); Anion Gap 14 mmol/L (10-20); BUN (Urea Nitrogen) 30 mg/dL (8.4-25.7); Bilirubin, Total 0.3 mg/dL (0.3-1.2); Calc. Creatinine Clearance 0 mL/min (70-130); Calcium 7.4 mg/dL (7.8-10.44); Carbon Dioxide 26 mmol/L (23-31); Chloride 102 mmol/L (98-107); Globulin 3.5 g/dL (2.4-3.5); Glucose 296 mg/dL (80-115); Potassium 4.3 mmol/L (3.5-5.1); Sodium 138 mmol/L (136-145)
[2024-09-28] MEDS ORDERED: hydrALAZINE 20 MG/ML VIAL SLOW IVP PRN ×2 (13:38→16:12)
[2024-09-28] MEDS ORDERED: Senokot S 8.6-50 MG TAB PO PRN (15:48)
[2024-09-28 16:16] VITALS: BMI 30.2
[2024-09-28] MEDS ORDERED: Dextrose 50% Abboject 50 ML SYRINGE SLOW IVP PRN (16:17)
[2024-09-28] MEDS ORDERED: Glucagon 1 MG/ML KIT IM PRN (16:17)
[2024-09-28] MEDS: OLANZapine 5 MG TAB PO SCH (20:21)
[2024-09-28] MEDS: Apixaban 5 MG TAB PO SCH (20:22)
[2024-09-28] MEDS: Gabapentin 300 MG CAP PO SCH (20:22)
[2024-09-28] MEDS: Sertraline 100 MG TAB PO SCH (21:52)
[2024-09-29 05:25] LABS: #Basophils 0.05 10x3/uL (0.0-0.2); #Eosinophils 0.25 10x3/uL (0.0-0.7); #Monocytes 0.43 10x3/uL (0.11-0.59); #Neutrophils 2.93 10x3/uL (1.40-6.50); %Basophils 1.1 % (0.0-1.0); %Eosinophils 5.7 % (0.0-10.0); %Lymphocytes 16.0 % (21.0-51.0); %Monocytes 9.8 % (0.0-10.0); %Neutrophils 67.2 % (42.0-75.0); Hematocrit 30.5 % (42.0-52.0); Hemoglobin 9.5 g/dL (14.0-18.0); Mean Corpuscular Hemoglobin 30.7 pg (27.0-31.0); Mean Corpuscular Volume 98.7 fL (78.0-98.0); Platelet Count 148 10x3/uL (130-400); Red Blood Cell (RBC) Count 3.09 mill/uL (4.70-6.10); White Blood Cell (WBC) Count 4.37 10x3/uL (4.8-10.8)
[2024-09-29 05:53] LABS: ALT (SGPT) 19 U/L (Less than 45); AST (SGOT) 35 U/L (11-34); Albumin 2.6 g/dL (3.1-4.5); Alkaline Phosphatase 212 U/L (40-110); Anion Gap 17 mmol/L (10-20); BUN (Urea Nitrogen) 38 mg/dL (8.4-25.7); Bilirubin, Total 0.3 mg/dL (0.3-1.2); Calc. Creatinine Clearance 13 mL/min (70-130); Calcium 7.0 mg/dL (7.8-10.44); Carbon Dioxide 20 mmol/L (23-31); Cardiac Risk 3.2 (Less than 4.5); Chloride 101 mmol/L (98-107); Cholesterol 120 mg/dl (< 200 Desired); Globulin 3.5 g/dL (2.4-3.5); Glucose 389 mg/dL (80-115); HDL Cholesterol 38 mg/dL (>60 Neg Risk); LDL Cholesterol, Calculated 49 mg/dL; Potassium 4.7 mmol/L (3.5-5.1); Sodium 133 mmol/L (136-145); Triglycerides 164 mg/dL (Less than 150)
[2024-09-29 07:15] LABS: Troponin I 0.035 ng/mL (< 0.028)
[2024-09-29] MEDS ORDERED: Aspirin 81 mg Enteric Coated Tablet PO SCH (09:00)
[2024-09-29] MEDS: Insulin Glargine 30 UNITS/0.3 ML VIAL SC SCH (09:24)
[2024-09-29] MEDS: Aspirin 81 mg Enteric Coated Tablet PO SCH (09:24)
[2024-09-29] MEDS: Folic Acid/Vit B Comp W-C PO SCH (09:24)
[2024-09-30 04:16] LABS: #Basophils 0.04 10x3/uL (0.0-0.2); #Eosinophils 0.30 10x3/uL (0.0-0.7); #Monocytes 0.59 10x3/uL (0.11-0.59); #Neutrophils 3.88 10x3/uL (1.40-6.50); %Basophils 0.7 % (0.0-1.0); %Eosinophils 5.2 % (0.0-10.0); %Lymphocytes 15.9 % (21.0-51.0); %Monocytes 10.3 % (0.0-10.0); %Neutrophils 67.6 % (42.0-75.0); Hematocrit 31.6 % (42.0-52.0); Hemoglobin 10.1 g/dL (14.0-18.0); Mean Corpuscular Hemoglobin 31.2 pg (27.0-31.0); Mean Corpuscular Volume 97.5 fL (78.0-98.0); Platelet Count 130 10x3/uL (130-400); Red Blood Cell (RBC) Count 3.24 mill/uL (4.70-6.10); White Blood Cell (WBC) Count 5.74 10x3/uL (4.8-10.8)
[2024-09-30 04:47] LABS: ALT (SGPT) 17 U/L (Less than 45); AST (SGOT) 26 U/L (11-34); Albumin 2.7 g/dL (3.1-4.5); Alkaline Phosphatase 196 U/L (40-110); Anion Gap 15 mmol/L (10-20); BUN (Urea Nitrogen) 45 mg/dL (8.4-25.7); Bilirubin, Total 0.3 mg/dL (0.3-1.2); Calc. Creatinine Clearance 10 mL/min (70-130); Calcium 6.9 mg/dL (7.8-10.44); Carbon Dioxide 23 mmol/L (23-31); Chloride 102 mmol/L (98-107); Globulin 3.3 g/dL (2.4-3.5); Glucose 62 mg/dL (80-115); Potassium 4.2 mmol/L (3.5-5.1); Sodium 136 mmol/L (136-145)
[2024-09-30] MEDS: Calcium Carbonate 500 MG ChewTAB PO SCH ×2 (05:20→20:47)
[2024-09-30] MEDS ORDERED: Heparin 10,000 UNITS/ 10 ML VIAL ONE (11:35)
[2024-09-30] MEDS: EPOETIN ALFA-EPBX (ESRD) 10,000 UNITS/ML VIAL IVP SCH (12:41)
[2024-09-30] MEDS: Mupirocin 1 GM TUBE NASAL DECOLONIZATION NASAL SCH (20:48)
[2024-10-01 07:13] LABS: #Basophils 0.03 10x3/uL (0.0-0.2); #Eosinophils 0.25 10x3/uL (0.0-0.7); #Monocytes 0.55 10x3/uL (0.11-0.59); #Neutrophils 2.21 10x3/uL (1.40-6.50); %Basophils 0.8 % (0.0-1.0); %Eosinophils 6.5 % (0.0-10.0); %Lymphocytes 20.8 % (21.0-51.0); %Monocytes 14.3 % (0.0-10.0); %Neutrophils 57.3 % (42.0-75.0); Hematocrit 30.2 % (42.0-52.0); Hemoglobin 9.6 g/dL (14.0-18.0); Mean Corpuscular Hemoglobin 30.7 pg (27.0-31.0); Mean Corpuscular Volume 96.5 fL (78.0-98.0); Platelet Count 129 10x3/uL (130-400); Red Blood Cell (RBC) Count 3.13 mill/uL (4.70-6.10); White Blood Cell (WBC) Count 3.85 10x3/uL (4.8-10.8)
[2024-10-01 07:32] LABS: ALT (SGPT) 18 U/L (Less than 45); AST (SGOT) 30 U/L (11-34); Albumin 2.6 g/dL (3.1-4.5); Alkaline Phosphatase 207 U/L (40-110); Anion Gap 13 mmol/L (10-20); BUN (Urea Nitrogen) 25 mg/dL (8.4-25.7); Bilirubin, Total 0.3 mg/dL (0.3-1.2); Calc. Creatinine Clearance 14 mL/min (70-130); Calcium 7.1 mg/dL (7.8-10.44); Carbon Dioxide 24 mmol/L (23-31); Chloride 100 mmol/L (98-107); Globulin 3.3 g/dL (2.4-3.5); Glucose 194 mg/dL (80-115); Potassium 4.2 mmol/L (3.5-5.1); Sodium 133 mmol/L (136-145)
[2024-10-01] MEDS ORDERED: Acetaminophen 500 MG TAB PO PRN (10:06)
[2024-10-01 16:35] VITALS: BP 165/92; TEMP 97.5
[2024-10-01] MEDS ORDERED: Carvedilol 6.25 MG TAB PO SCH (21:00)
[2024-10-01] MEDS ORDERED: Melatonin 3 MG TAB PO SCH (21:00)
== END 2024-10-01 17:05 | DRG 69 ==
LOC: ERS 10:25 → 2SE 14:39 → OBSVTOIN 09-29 15:16
PROVIDERS: ADMIT Family Medicine; ATTEND Family Medicine
DX: G45.9 Transient cerebral ischemic attack, unspecified (principal); N18.6 End stage renal disease; I50.22 Chronic systolic (congestive) heart failure; I13.2 Hypertensive heart and chronic kidney disease with heart failure and with stage 5 chronic kidney disease, or end stage renal disease; E11.22 Type 2 diabetes mellitus with diabetic chronic kidney disease; E03.9 Hypothyroidism, unspecified; K21.9 Gastro-esophageal reflux disease without esophagitis; F41.9 Anxiety disorder, unspecified; K70.30 Alcoholic cirrhosis of liver without ascites; F31.9 Bipolar disorder, unspecified; Z79.899 Other long term (current) drug therapy; D63.1 Anemia in chronic kidney disease; Z79.01 Long term (current) use of anticoagulants; Z79.4 Long term (current) use of insulin; E83.51 Hypocalcemia
CPT/HCPCS: 36415; 36416; 70496; 70498; 70551; 80053; 80061; 83036; 84425; 84443; 84484; 85025; 85610; 85730; 93005; 93306; 94760; G0378; J1644; J1815; Q9967